=== PATIENT | female | born 1990 | race Caucasian/White ===

== ENCOUNTER 2018-07-28 06:08 | Inpatient (IN) ==
--- NOTE | 2018-07-28 06:44 | ED ---
HPI General Chief Complaint: Psychiatric Symptoms Stated Complaint: psych screen/DB [place] Time Seen by Provider: 07/28/18 06:37 Source: patient Mode of arrival: other ([place]) Limitations: no limitations History of Present Illness HPI Narrative: 27-year-old female presents the ED via law enforcement under [place] act for psychiatric evaluation. Per the [place] act paperwork the patient was found sleeping in a doorway, behaving erratically and had repetitive questioning. On presentation the patient appears to be under the influence of an unknown substance. She is very labile, vacillating between crying and laughter. She states that she "misses Bebeto." When asked if she knows the date she answered "today's date or THE date." She cries when we attempted to take her blood pressure stating that she is afraid of the blood pressure cuff. She then switched quickly to laughter. She then began to cry again when asked to remove her shoes, stating "anything but that." She states that she does not know when her last menstrual period was. She states that she does not know if she is sexually active. She is unable to provide any meaningful history. The officer that accompanies her states that she has a missing person, reported about 4 days ago. They have been in contact with her mother who would like to be notified when the patient is discharged. Related Data Allergies Allergy/AdvReac Type Severity Reaction Status Date / Time No Known Allergies Allergy Unverified 07/28/18 06:38 Review of Systems ROS: all other systems reviewed are negative PMFSH Medical History Medical History Patient denies medical problems (Acute) Surgical History Surgical History No history of previous surgery (Acute) Social History Social History Recent Travel in [facility] within the Last 8 Weeks: No Recent Out of Country Travel within the Last 8 Weeks: No Exam Narrative Exam Narrative: GENERAL: Well-nourished, well-developed white female no acute distress. SKIN: Focused skin assessment warm/dry. Diffuse sunburn HEAD: Atraumatic. Normocephalic. EYES: Pupils 6-7 mm, equal and round. No scleral icterus. No injection or drainage. ENT: No nasal bleeding or discharge. Mucous membranes pink and moist. NECK: Trachea midline. No JVD. CARDIOVASCULAR: Tachycardic. Regular rate and rhythm. No murmur appreciated. RESPIRATORY: No accessory muscle use. Clear to auscultation. Breath sounds equal bilaterally. GASTROINTESTINAL: Abdomen soft, non-tender, nondistended. Hepatic and splenic margins not palpable. MUSCULOSKELETAL: No obvious deformities. No clubbing. No cyanosis. No edema. NEUROLOGICAL: Awake and alert. No obvious cranial nerve deficits. Motor grossly within normal limits. Normal speech. PSYCHIATRIC: Labile, tangential. Course Initial Documented Vital Signs Pulse Rate 131 H 07/28/18 06:24 Respiratory Rate 20 07/28/18 06:24 Blood Pressure 127/76 07/28/18 06:24 Pulse Oximetry 98 07/28/18 06:24 Last Documented Vital Signs Pulse Rate 131 H 07/28/18 06:24 Respiratory Rate 20 07/28/18 06:24 Blood Pressure 127/76 07/28/18 06:24 Pulse Oximetry 98 07/28/18 06:24 Medical Decision Making MDM Narrative Medical decision making narrative: 27-year-old female presents the ED under [place] act for psychiatric evaluation. Per the lawyer criminal the patient is a missing persons. Her mother would like to be notified when she is to be discharged. She is under the influence of an unknown substance. She is unable to provide any meaningful history. She is tachycardic on presentation. Basic lab work pending. Anticipate medical clearance for psychiatric evaluation. Medical Screen Exam Complete: Yes Emergency Medical Condition: Yes Differential Diagnosis Differential Diagnosis: adjustment disorder versus anxiety versus bipolar versus depression versus mood disorder versus ODD versus psychosis versus PTSD versus schizophrenia versus schizoaffective disorder versus substance-induced mood disorder versus other Discharge Plan Discharge Disposition Patient Disposition: [facility] Patient Physicians Team ED Provider: Franklin Steiner ED Midlevel Provider: Cris Doherty Status ED Status: With Doctor
[2018-07-28 07:05] LABS: Baso % (Auto) 0.4 % (0.0-2.0); Eos % (Auto) 0.3 % (0.0-4.0); Hematocrit 44.7 % (35.0-46.0); Lymph # (Auto) 2.6 th/mm3 (1.0-4.8); Lymph % (Auto) 31.3 % (9.0-44.0); Mean Corpuscular HGB Conc 33.5 % (32.0-36.0); Mean Corpuscular Hemoglobin 31.1 pg (27.0-34.0); Mean Corpuscular Volume 92.8 fL (80.0-100.0); Mean Platelet Volume 9.7 fL (7.0-11.0); Mono # (Auto) 0.8 th/mm3 (0.0-0.9); Mono % (Auto) 10.2 % (0.0-8.0); Neut # (Auto) 4.7 th/mm3 (1.8-7.7); Neut % (Auto) 57.8 % (16.0-70.0); Platelet Count 314 th/mm3 (150-450); Red Blood Count 4.82 mil/mm3 (4.00-5.30); Red Cell Distribution Width 13.2 % (11.6-17.2); White Blood Count 8.2 th/mm3 (4.0-11.0)
[2018-07-28] MEDS ORDERED: Sod Chloride 0.9% Inj 1,000 ML IV.SIG SCH (07:15)
[2018-07-28 08:26] LABS: Alanine Aminotransferase 25 U/L (10-53); Anion Gap 17 meq/L (5-15); Aspartate Aminotransferase 24 U/L (15-37); Blood Urea Nitrogen 6 mg/dL (7-18); Calcium 8.9 mg/dL (8.5-10.1); Carbon Dioxide 19.8 meq/L (21.0-32.0); Chloride 105 meq/L (98-107); Glomerular Filtration Rate Greater Than 89 mL/min (>89); Glucose,Random 96 mg/dL (74-106); Potassium 4.3 meq/L (3.5-5.1); Sodium 142 meq/L (136-145)
[2018-07-28 08:27] LABS: Albumin 4.3 g/dL (3.4-5.0); Alkaline Phosphatase 79 U/L (45-117)
[2018-07-28 08:28] LABS: Alcohol 3 mg/dL (0-5)
[2018-07-28 09:39] LABS: Amphetamine Screen,Urine Neg (Neg); Barbiturate Screen,Urine Neg (Neg); Cannabinoid Screen,Urine Pos (Neg); Cocaine Screen,Urine Neg (Neg)
[2018-07-28 09:54] LABS: Opiate Screen,Urine Neg (Neg)
--- NOTE | 2018-07-28 16:41 | ED ---
HPI - Psych - General Source: patient Mode of arrival: other ([place]) Limitations: other (psychotic) - History of Present Illness MD complaint: other Onset (ago): day(s) Duration: constant History of same: Yes Relieving factors: none Exacerbating factors: none, other Context: not taking psychiatric medications Associated psychiatric symptoms: auditory hallucinations, visual hallucinations Associated symptoms: denies other symptoms Treatments prior to arrival: none If self harm: other (Unable to evaluate) - General Chief Complaint: Psychiatric Symptoms Stated Complaint: psych screen/[place] Time Seen by Provider: 07/28/18 16:15 - History of Present Illness HPI Narrative: History of Present Illness HPI Narrative: 27-year-old female presents the ED via law enforcement under [employer] for psychiatric evaluation. Per the [employer] act paperwork the patient was found sleeping in a doorway of a closed business, behaving erratically and had repetitive questioning. On presentation to the ED she is described as follows: " the patient appears to be under the influence of an unknown substance. She is very labile, vacillating between crying and laughter. She states that she "misses Bebeto." When asked if she knows the date she answered "today's date or THE date." She cries when we attempted to take her blood pressure stating that she is afraid of the blood pressure cuff. She then switched quickly to laughter. She then began to cry again when asked to remove her shoes, stating "anything but that." not know The officer that accompanies her states that she has a missing person, reported about 4 days ago. They have been in contact with her mother who would like to be notified when the patient is discharged. The patient was monitored in J pod and continued to present in a labile fashion. At approximately 1230 I was asked to evaluate the patient by 1 of the nurses. The patient was yelling at the nurse and threatening to harm the nurse. She was saying things such as "you do not know Bebeto. I will kill you. "Patient was administered ETO due to her level of agitation as well as her threats. Within 5 minutes of patient yelling she was laughing while no one was in the room with her. I attempted to obtain information from her but the patient was unable to provide any history. I contacted her mother PAULINE at [phone] to obtain clinical information. She informs me that the patient was hospitalized at [facility] on July 12 and discharged after 1 week hospitalization. After her discharge she went back to [place] where she lives and the mother had no contact with her until 2 days ago when she received a call from the patient telling her she had taken a plane from [place] and was somewhere in [facility]. She had no further contact with her so she filed a missing persons report. The mom tells me that she may have been given a medication at [facility] but she does not know the name of the medication. The mother tells me that the patient does have a history of substance abuse and the past but that to her knowledge she is not currently using any substances. Mom was adamant about not having the patient go to any other facility other than [facility] and actually threatened this blurb writer with contacting a second cutter on her behalf. (Miroslava Brooke) - Related Data Home Medications Medication Instructions Recorded Confirmed Unable to Obtain Home Meds 07/28/18 07/28/18 Allergies Allergy/AdvReac Type Severity Reaction Status Date / Time No Known Allergies Allergy Unverified 07/28/18 06:38 [facility] - History History Provided By: Patient, Law Enforcement - Medical History Medical History: Medical History (Last Updated 07/28/18 @ 06:34 by Bryant Coe) Patient denies medical problems - Surgical History Surgical History: Surgical History (Last Updated 07/28/18 @ 06:34 by Bryant Coe) No history of previous surgery - Social History I have reviewed the patient's Social History: Yes - Tobacco History Smoking Status: Unknown if ever smoked - Alcohol History How Often Do You Have a Drink Containing Alcohol: Unable to Obtain - Substance Use History Substance History: Unable to Obtain - Travel History Recent Travel in the [facility] Within the Last 8 Weeks: No Recent Travel Out of the Country Within the Last 8 Weeks: No - Immunization History Tetanus Immunization: Unsure Psychiatric History - Psychiatric History Psychiatric Treatment History: History of Psychiatric Treatment History of Inpatient Treatment: Yes Firearms in Home: No - Psychiatric History As per her mother she has received psychiatric treatment in the past. Was just released from [facility] approximately a month ago. ( Miroslava Brooke) Physical Exam - General Limitations: no limitations Mental Status Examination Appearance: Disheveled, Other Consciousness: Alert (Sunburned) Orientation: Person Motor Activity: Normal gait Speech: Slow Language: Adequate Fund of Knowledge: Adequate Attention and Concentration: Inadequate Memory: Impaired Mood: Angry, Irritable Affect: Labile Thought Process & Associations: Disorganized Thought Content: Delusional Hallucination Type: Auditory Delusion Type: Paranoid Suicidal Ideation: No Suicidal Plan: No Suicidal Intention: No Homicidal Ideation: No Homicidal Plan: No Homicidal Intention: No Insight: Poor Judgment: Poor Initial Documented Vital Signs Pulse Rate 131 H 07/28/18 06:24 Respiratory Rate 20 07/28/18 06:24 Blood Pressure 127/76 07/28/18 06:24 Pulse Oximetry 98 07/28/18 06:24 Last Documented Vital Signs Temperature 98.4 F 07/29/18 17:27 Pulse Rate 75 07/29/18 17:27 Respiratory Rate 17 07/29/18 17:27 Blood Pressure 100/63 07/29/18 17:27 Pulse Oximetry 97 07/29/18 17:27 MDM - Psych - Diagnosis (1) Schizophrenia, disorganized type Status: Acute - Lab Data Result diagrams: 07/28/18 06:30 07/28/18 06:30 - [facility] Narrative Medical decision making narrative: At the time of this evaluation and with all the information that we have obtained for her mother and the patient will be admitted to our inpatient psychiatric unit for further observation, for safety and for stabilization. ( Miroslava Brooke) - Lab Data POC Results POC Urine Results Negative Lab Results 07/28/18 07/28/18 07/28/18 Range/Units 06:30 06:30 08:55 WBC 8.2 (4.0-11.0) th/mm3 RBC 4.82 (4.00-5.30) mil/mm3 Hgb 15.0 (11.6-15.3) gm/dL Hct 44.7 (35.0-46.0) % MCV 92.8 (80.0-100.0) fL MCH 31.1 (27.0-34.0) pg MCHC 33.5 (32.0-36.0) % RDW 13.2 (11.6-17.2) % Plt Count 314 (150-450) th/mm3 MPV 9.7 (7.0-11.0) fL Neut % (Auto) 57.8 (16.0-70.0) % Lymph % (Auto) 31.3 (9.0-44.0) % Dade % (Auto) 10.2 H (0.0-8.0) % Eos % (Auto) 0.3 (0.0-4.0) % Baso % (Auto) 0.4 (0.0-2.0) % Neut # (Auto) 4.7 (1.8-7.7) th/mm3 Lymph # (Auto) 2.6 (1.0-4.8) th/mm3 Dade # (Auto) 0.8 (0.0-0.9) th/mm3 Eos # (Auto) 0.0 (0.0-0.4) th/mm3 Baso # (Auto) 0.0 (0.0-0.2) th/mm3 WBC Differential . Differential Comment Auto diff final Sodium 142 (136-145) meq/L Potassium 4.3 (3.5-5.1) meq/L Chloride 105 (98-107) meq/L Carbon Dioxide 19.8 L (21.0-32.0) meq/L Anion Gap 17 H (5-15) meq/L BUN 6 L (7-18) mg/dL Creatinine 0.71 (0.50-1.00) mg/dL Estimated GFR Greater than 89 (>89) mL/min Random Glucose 96 (74-106) mg/dL Calcium 8.9 (8.5-10.1) mg/dL Total Bilirubin 0.7 (0.2-1.0) mg/dL AST 24 (15-37) U/L ALT 25 (10-53) U/L Alkaline Phosphatase 79 (45-117) U/L Total Protein 8.0 (6.4-8.2) g/dL Albumin 4.3 (3.4-5.0) g/dL TSH 1.510 (0.358-3.740) uIU/mL Urine Opiates Screen Neg (Neg) Ur Barbiturates Screen Neg (Neg) Ur Amphetamines Screen Neg (Neg) U Benzodiazepines Scrn Neg (Neg) Urine Cocaine Screen Neg (Neg) U Cannabinoids Screen Pos H (Neg) Serum Alcohol 3 (0-5) mg/dL
[2018-07-28] MEDS ORDERED: Aluminum/Magnesium/Simethacone Susp 30 ML UDC PO PRN (16:58)
--- NOTE | 2018-07-29 09:52 | P.HPPSY ---
Provisional Diagnosis Admission Date: July 28, 2018 17:00 [place] I.: 1. Schizophrenia, disorganized type, acute exacerbation Rule out schizoaffective disorder, bipolar type Rule out contribution from drug-induced psychotic disorder 2. Cannabis abuse [place] II.: Deferred Competence Certification of Person's Competence To Provide Express and Informed Consent I have personally examined Tanisha Briseno, a person being served at [facility] on, July 29, 2018 0952. Express and informed consent means consent voluntarily given in writing, by a competent person, after sufficient explanation and disclosure of the subject matter involved to enable the person to make a knowing and willful decision without any element of force, fraud, deceit, duress, or other form of constraint or coercion. This person is 18 years of age or older, is not now known to be incompetent to consent to treatment with a guardian advocate, and does not have a health care surrogate or proxy currently making medical treatment decisions. I have found this person to be one of the following: [] Competent to provide express and informed consent, as defined above, for voluntary admission to this facility and is competent to provide express and informed consent for treatment. He/she has the consistent capacity to make well reasoned, willful, and knowing decisions concerning his or her medical or mental health treatment. The person fully and consistently understands the purpose of the admission for examination/placement and is fully capable of personally exercising all rights assured [place] [X] Incompetent to provide express and informed consent to voluntary admission, and this is incompetent to provide express and informed consent to treatment. The person must be transferred to involuntary status and a petition for a guardian advocate filed with the Circuit Court. [] Refusing to provide express and informed consent to voluntary admission but is competent to provide express and informed consent for treatment. The person must be discharged or transferred to involuntary status. Form shall be completed within 24 hours of a person's arrival at the receiving facility and filed in the clinical record of each person: 1. Admitted on a voluntary basis 2. Permitted to provide express and informed consent to his/her own treatment 3. Allowed to transfer from involuntary to voluntary status 4. Prior to permitting a person to consent to his or her own treatment after having been previously found incompetent to consent to treatment. History of Present Illness Capacity: Lacks capacity Chief Complaint: Crowe Act History of Present Illness: Ms. Briseno is a 27-year-old female with history of schizophrenia versus bipolar disorder who presents under a Crowe Act by Nina PEREZ alleging that patient was sleeping in the front door of closed business. She was noted to be unable to answer basic questions and repeated everything according to the Crowe act. Patient was evaluated by the psychiatric nurse practitioner in the ED who admitted the patient to the inpatient psychiatric unit for further management. Reviewing our electronic medical record, I see no previous psychiatric contact within our system. Patient seen and examined with nurse. Chart reviewed. Case discussed with nursing staff who reports that the patient has been smiling, laughing and somewhat disinhibited on the unit. I have discussed with staff ensuring that patient is closely monitored given behavioral disinhibition. On my examination today, patient presents initially with a silly, giddy affect. She provides tangential answers to questions, and her thought process is disorganized generally, and so it is difficult to obtain much in the way of meaningful history from the patient. She perseverates on a male by the name of Bebeto Victoria and also exhibits a mild lutheran preoccupation. She appears internally preoccupied but denies AVH. She denies suicidal or homicidal ideation. She is somewhat disheveled. Psychiatric interview is limited because of patient's degree of psychiatric impairment at present. I am unable to obtain much in the way of meaningful past psychiatric, family or social history from the patient for this reason. She does deny any substance use, although her urine toxicology is positive for cannabinoids. She also is able to say that she is presently homeless. Given the patient's degree of psychiatric impairment I obtained collateral information from the patient's mother Mindi Christian at the telephone number listed in wastewater project engineer note. Ms. Christian reports that patient had onset of her psychiatric illness about 8 years ago when parents were . She notes that the patient has a history of trauma. She does not know of any history of suicide attempts or violent behavior by the patient. There is no family history of mental illness. Ms. Christian notes patient has a history of substance use including MDMA and cocaine. She reports that the patient previously kept a firearm but this has been secured. She notes that patient was initially diagnosed with a bipolar illness but she has had ongoing issues with psychosis and schizophrenia has also been considered. Ms. Christian notes patient was recently hospitalized at [facility] and was on Risperdal there; she notes that the patient has had significant issues with medication nonadherence in the past. Ms. Christian is willing to serve as health care surrogate and provides consent for psychotropic medication treatment as outlined below. We discussed the patient's legal status and treatment plan. I spent approximately 18 minutes in telephone consultation with Ms. Christian. - Inpatient Certification I certify that the inpatient services were ordered in accordance with Medicare regulations governing the order. This includes certification that hospital inpatient services are reasonable and necessary and in the case of services not specified as inpatient-only under 42 CFR 419.22(n), that they are appropriately provided as inpatient services in accordance to with the 2-midnight benchmark under 43 CFR 412.3(e) I certify that inpatient psychiatric hospital services are medically necessary. Evaluation and treatment and/or diagnostic testing are expected to improve the patient's condition. The patient needs on a daily basis, active treatment furnished directly by or requiring the supervision of inpatient psychiatric facility personnel. Estimated Total Length of Stay (Days): 7 Plans for Post Hospital Care: Not yet determined Review of Systems unobtainable due to mental condition PMFSH - History History Provided By: Patient, Law Enforcement - Medical History Medical History: Medical History (Last Updated 07/28/18 @ 06:34 by Bryant Coe) Patient denies medical problems - Surgical History Surgical History: Surgical History (Last Updated 07/28/18 @ 06:34 by Bryant Coe) No history of previous surgery - Tobacco History Smoking Status: Unknown if ever smoked - Alcohol History How Often Do You Have a Drink Containing Alcohol: Unable to Obtain - Substance Use History Substance History: Unable to Obtain - Travel History Recent Travel in the [place] Within the Last 8 Weeks: No Recent Travel Out of the Country Within the Last 8 Weeks: No - Immunization History Tetanus Immunization: Unsure Quality Measures - Patient Strengths Patient's strengths (minimum of 2): In a monitored setting. Verbally fluent. Medications and Allergies Active Medications: Active Medications Al Hydrox/Mg Hydrox/Simethicone (Mag-Al Plus Susp Liq) 30 ml PO Q6H PRN PRN Reason: DYSPEPSIA Al Hydroxide/Mg Hydroxide (Milk Of Magnesia Liq) 30 ml PO Q12H PRN PRN Reason: Mild Constipation Sodium Chloride (Ns Inj) 1,000 mls @ 0 mls/hr IV.SIG BOLUS ADALI Last Infusion: 07/28/18 09:00 Dose: Infused Lorazepam (Ativan Inj) 1 mg IM Q6H PRN PRN Reason: MODERATE TO SEVERE ANXIETY Olanzapine (Zyprexa Inj) 10 mg IM Q12H PRN PRN Reason: SEVERE AGITATION Sennosides (Senokot) 17.2 mg PO Q12H PRN PRN Reason: Moderate Constipation Allergies Allergy/AdvReac Type Severity Reaction Status Date / Time No Known Allergies Allergy Unverified 07/28/18 06:38 Home Medications Medication Instructions Recorded Confirmed Type Unable to Obtain Home Meds 07/28/18 07/28/18 History Results - Labs CBC & Chem 7: 07/28/18 06:30 07/28/18 06:30 Labs: Laboratory Results - last 24 hr 07/28/18 08:55 Urine Opiates Screen Neg Ur Barbiturates Screen Neg Ur Amphetamines Screen Neg U Benzodiazepines Scrn Neg Urine Cocaine Screen Neg U Cannabinoids Screen Pos H Labs reviewed. ED point of care test negative. EKG reveals sinus rhythm with incomplete right bundle branch block. QTC is not prolonged. Exam Vital signs: Vital Signs 07/28/18 13:21 07/28/18 18:19 07/29/18 06:05 Temperature 97.9 F 98.1 F Pulse Rate 87 81 84 Respiratory Rate 18 18 16 Blood Pressure 114/66 107/66 115/87 Pulse Oximetry 100 97 Intake & Output 07/28/18 07/29/18 07/29/18 18:59 06:59 18:59 Intake Total 1000 / 1000 Balance 1000 / 1000 Weight 59.9 kg 96.4 kg Intake: IV 1000 / 1000 NS Inj 1,000 ML @ Wide Open IV. 1000 / 1000 SIG BOLUS ADALI Rx#:[id number] Other: Weight On Admission 59.9 kg Narrative: Physical examination was completed by the ED provider. On my examination today , the patient appears to be in no acute physical distress. No motor abnormalities noted. Labs and vital signs reviewed. Mental Status Examination Appearance: Disheveled Consciousness: Alert Orientation: Person, Place, Date/Time Motor Activity: Normal gait Speech: Rapid Language: Other (Rambling) Fund of Knowledge: Inadequate Attention and Concentration: Easily distracted Memory: Impaired (Psychosis interferes) Mood: Other (Somewhat elevated) Affect: Labile, Other (Silly) Thought Process & Associations: Disorganized Thought Content: Bizarre thinking, Hallucinations, Preoccupations Hallucination Type: Other (Appears internally stimulated) Delusion Type: Other (Difficult to assess due to thought disorder) Suicidal Ideation: No (Unreliable to contract for safety) Suicidal Plan: No Suicidal Intention: No Homicidal Ideation: No Homicidal Plan: No Homicidal Intention: No Insight: Poor Judgment: Poor Assessment and Plan - Assessment (1) Schizophrenia, disorganized type Code(s): F20.1 - Disorganized schizophrenia Status: Acute (2) Cannabis abuse Code(s): F12.10 - Cannabis abuse, uncomplicated Status: Acute - Plan Plan: 27-year-old female with psychiatric history as detailed above who presents under a Crowe act. On my examination today, the patient presents with prominent disorganization along with internal stimulation. She is disheveled and there is concern for a self-care deficit secondary to psychosis. Collateral from patient's mother suggests that history of schizophrenia or perhaps schizoaffective disorder. There may also be a component of drug- induced psychotic disorder given the patient's apparent cannabis use. Patient requires psychiatric hospitalization for safety, observation and stabilization. Admit inpatient. Involuntary status. I have completed first opinion. Consult for second opinion. Request healthcare surrogate and guardian advocate. For management of psychosis I will initiate Abilify 10 mg daily with plans to titrate to effect and as tolerated. To consider long-acting injectable Abilify Maintena, and I did discuss this option with healthcare surrogate Ms. Christian who is supportive. Atarax as needed for anxiety. Melatonin as needed for sleep. R/B/A for medications discussed with healthcare surrogate including the metabolic and motor side effects of antipsychotic therapy. I have ordered the nursing staff to obtain records from [facility]; these have been requested but we have received none at this point. Vitals every shift. Counselor to see. Further collateral information. Disposition planning. Estimated length of stay: 5-7 days. Justification for Continued Inpatient Stay: See above Discharge Planning: Pending psychiatric stabilization Request Healthcare Surrogate/Guardian Advocate?: Yes
--- NOTE | 2018-07-29 12:31 | ECG ---
Date Performed: 07/29/2018 Time Performed: 11:11:25 PTAGE: 27 years EKG: Sinus rhythm INCOMPLETE RIGHT BUNDLE BRANCH BLOCK BORDERLINE ECG NO PREVIOUS TRACING DOCTOR: Jass Reilly Interpretating Date/Time 07/29/2018 12:29:59
[2018-07-29] MEDS ORDERED: Acetaminophen 325 MG Tablet PO PRN (15:38)
[2018-07-30] MEDS: ARIPiprazole 10 MG Tablet PO SCH ×2 (08:27→17:33)
--- NOTE | 2018-07-30 09:26 | P.TTN ---
- Patient Problems Problems: 1. Discharge planning 2. Medication compliance 3. Knowledge deficit 4. Lack of coping skills - Progress Toward Goals Provider Present: Dr. Haja Natarajan (Patient is disorganized, psychotic, history of schizophrenia, patient is a supportive mom, Dr. Natarajan is titrating medication Abilify.) Psychiatric Counselors Present: Jude Carrasco Jr., [facility] (Patient is not engaged in treatment, patient will discharge home to his mother's residence when stable.) Group Spec/RT/OT/RYAN Present: CONNOR Linder (Patient does not attend groups.) - Documentation Teaching Recipient: Patient
--- NOTE | 2018-07-30 09:37 | P.PNPSY ---
Subjective Chief Complaint: Crowe Act Remarks: Patient seen and examined with nurse. Chart reviewed. I note that records have been requested from [facility], but we have not yet received anything in return. Case discussed with nursing staff who reports patient refused laboratories this morning. Case discussed in treatment team. On my examination today, the patient presents as oppositional and oddly related. Thought process remains fairly disorganized. She remains perseverative on Bebeto Julien. She is selectively mute at times, and at other times responds only with peals of laughter, as she does when I inquire about SI/ HI and about substance use. No reported side effects from medications. No physical complaints. The patient refuses physical examination for motor side effects of antipsychotic saying in a somewhat threatening fashion "no, you better not." Vital Signs Temp Pulse Resp BP Pulse Ox 07/30/18 06:29 98.1 F 87 109/61 99 07/29/18 17:27 98.4 F 75 17 100/63 97 Labs reviewed. No new labs. Nurse to call laboratory to ensure that they are running the extended urine toxicology screen based on the urine sample already in the lab. Review of Systems unobtainable due to mental condition Mental Status Examination Appearance: Disheveled Consciousness: Alert (Sunburned) Orientation: Person Motor Activity: Other (No motor abnormalities noted but refuses physical exam) Speech: Unremarkable Language: Other (Rambling) Fund of Knowledge: Adequate Attention and Concentration: Inadequate Memory: Impaired Mood: Oppositional, Other (Somewhat elevated) Affect: Labile, Other (Silly) Thought Process & Associations: Disorganized Thought Content: Bizarre thinking, Hallucinations Hallucination Type: Other (Appears internally stimulated) Delusion Type: Other (Difficult to assess due to thought disorder) Insight: Poor Judgment: Poor Mental Status Exam Remarks: Does not answer when asked about suicidal or homicidal ideation. 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 Titrate Abilify to 15 mg daily to target psychiatric symptoms. Please consider further titration of this agent through the weekend. To consider long-acting injectable Abilify Maintena. Continue other medications and care as ordered. Justification for Continued Inpatient Stay: Medication changes. Impairment in reality construction. High risk for decompensation in less restrictive setting. Discharge Planning: Pending psychiatric stabilization. Request Healthcare Surrogate/Guardian Advocate?: Yes
[2018-07-30] MEDS ORDERED: ARIPiprazole 5 MG Tablet PO ONE (10:00)
[2018-07-30 11:24] LABS: Amphetamine Urine With Conf Neg (Neg); Benzodiazepine Urine With Conf Neg (Neg)
--- NOTE | 2018-07-30 13:36 | P.CONPSY ---
Provisional Diagnosis Admission Date: July 28, 2018 17:00 [place] I.: 1. Schizophrenia, disorganized type, acute exacerbation Rule out schizoaffective disorder, bipolar type Rule out contribution from drug-induced psychotic disorder 2. Cannabis abuse [place] II.: Deferred History of Present Illness Service: Psychiatry Consult date: 07/30/18 Requesting Physician: George Natarajan Reason for Consult: Second opinion petition supporting Crowe act Primary Care Provider: UNKNOWN History of Present Illness: Patient is a 27-year-old white female admitted to Dr. Natarajan service under the Crowe act. Dr. Natarajan H&P reviewed and agreed with, Dr. Natarajan has signed first opinion petition supporting Crowe act. I agree. Patient meets criteria under the Crowe act for further involuntary psychiatric hospitalization thus I will cosign second opinion petition supporting Crowe act. Patient seen by me in day room with nurse Nathaly patient sitting in chair with a severely childlike grin on her face making fair eye contact with me though showing no verbal response to my questions just kind of giggling and then turning away from me thus at this time I feel patient does meet criteria for involuntary psychiatric hospitalization PMFSH - History History Provided By: Patient, Law Enforcement - Medical History Medical History: Medical History (Last Updated 07/28/18 @ 06:34 by Bryant Coe) Patient denies medical problems - Surgical History Surgical History: Surgical History (Last Updated 07/28/18 @ 06:34 by Bryant Coe) No history of previous surgery - Tobacco History Smoking Status: Unknown if ever smoked - Alcohol History How Often Do You Have a Drink Containing Alcohol: Unable to Obtain - Substance Use History Substance History: Unable to Obtain - Travel History Recent Travel in the [place] Within the Last 8 Weeks: No Recent Travel Out of the Country Within the Last 8 Weeks: No - Immunization History Tetanus Immunization: Unsure Medications and Allergies Active Medications: Active Medications Acetaminophen (Tylenol) 650 mg PO Q4H PRN PRN Reason: PAIN 1-10 AND/OR FEVER >101F Al Hydrox/Mg Hydrox/Simethicone (Mag-Al Plus Susp Liq) 30 ml PO Q6H PRN PRN Reason: DYSPEPSIA Al Hydroxide/Mg Hydroxide (Milk Of Magnesia Liq) 30 ml PO Q12H PRN PRN Reason: Mild Constipation Aripiprazole (Abilify) 15 mg PO DAILY ADALI Hydroxyzine HCl (Atarax) 50 mg PO Q6H PRN PRN Reason: ANXIETY Sodium Chloride (Ns Inj) 1,000 mls @ 0 mls/hr IV.SIG BOLUS ADALI Last Infusion: 07/28/18 09:00 Dose: Infused Melatonin (Melatonin) 5 mg PO HS PRN PRN Reason: INSOMNIA Allergies Allergy/AdvReac Type Severity Reaction Status Date / Time No Known Allergies Allergy Unverified 07/28/18 06:38 Home Medications Medication Instructions Recorded Confirmed Type Unable to Obtain Home Meds 07/28/18 07/28/18 History Exam Vital signs: Vital Signs 07/29/18 17:27 07/30/18 06:29 Temperature 98.4 F 98.1 F Pulse Rate 75 87 Respiratory Rate 17 Blood Pressure 100/63 109/61 Pulse Oximetry 97 99 Mental Status Examination Appearance: Disheveled Consciousness: Alert (Sunburned) Orientation: Person Motor Activity: Other (No motor abnormalities noted but refuses physical exam) Speech: Unremarkable Language: Other (Rambling) Fund of Knowledge: Adequate Attention and Concentration: Inadequate Memory: Impaired Mood: Oppositional, Other (Somewhat elevated) Affect: Labile, Other (Silly) Thought Process & Associations: Disorganized Thought Content: Bizarre thinking, Hallucinations Hallucination Type: Other (Appears internally stimulated) Delusion Type: Other (Difficult to assess due to thought disorder) Suicidal Ideation: No Suicidal Plan: No Suicidal Intention: No Homicidal Ideation: No Homicidal Plan: No Homicidal Intention: No Insight: Poor Judgment: Poor Assessment and Plan - Assessment (1) Schizophrenia, disorganized type Code(s): F20.1 - Disorganized schizophrenia Status: Acute - Plan Plan: Patient meets criteria for involuntary psychiatric hospitalization thus I will cosign second opinion petition supporting Crowe act Justification for Continued Inpatient Stay: At this time patient would decompensate a place to a lower level of care Discharge Planning: To be determined Request Healthcare Surrogate/Guardian Advocate?: Yes
[2018-07-31] MEDS: ARIPiprazole 5 MG Tablet PO SCH ×2 (08:07→08:55)
[2018-07-31] MEDS ORDERED: Haloperidol Inj 5 MG/ML Ampul IM PRN (17:07)
[2018-07-31] MEDS ORDERED: Haloperidol Inj 5 MG/ML Ampul IM ONE (17:39)
[2018-07-31] MEDS ORDERED: Benztropine Inj 2 MG/2 ML Ampul IM ONE (18:20)
--- NOTE | 2018-07-31 18:30 | P.PNPSY ---
Subjective Chief Complaint: Crowe Act Remarks: Reviewed electronic medical records and discussed case with staff. Follow-up was conducted in patient's room with SHON Cullen present. Patient found lying face down on the floor with her face and that she. She initially refuses to speak this provider but eventually states "I am Tenri[employer], I do not speak to women". When asked what that has to do with speaking to women, she becomes irritable snapping at this provider "you obviously do not understand Congregation and you are obviously breaking my spiritism rights". I explained to her that she would be kept in the short robles due to flashing her breasts at the male patients on the unit, and that I had spoken with her mother and she would be given injectable medications if she continued to refuse the oral. She later came out of her room , and aggressively approached this provider, yelling "I do not have a mother, I am homeless, you are violating my rights by talking to anybody. Promise me that you won't give me any injections". She was once again placed back on the short robles and a 1 mg IM dose of Ativan was added to the IM Haldol. Mental Status Examination Appearance: Disheveled Consciousness: Alert (Sunburned) Orientation: Person Motor Activity: Other (No motor abnormalities noted but refuses physical exam) Speech: Unremarkable Language: Other (Rambling) Fund of Knowledge: Adequate Attention and Concentration: Inadequate Memory: Impaired Mood: Oppositional, Other (Somewhat elevated) Affect: Labile, Other (Silly) Thought Process & Associations: Disorganized Thought Content: Bizarre thinking, Hallucinations Hallucination Type: Other (Appears internally stimulated) Delusion Type: Other (Difficult to assess due to thought disorder) Suicidal Ideation: No Suicidal Plan: No Suicidal Intention: No Homicidal Ideation: No Homicidal Plan: No Homicidal Intention: No Insight: Poor Judgment: Poor Assessment and Plan - Assessment (1) Schizophrenia, disorganized type Code(s): F20.1 - Disorganized schizophrenia Status: Acute - Plan Plan: Patient will be reevaluated Thursday by the attending psychiatrist. Continue with current treatment plan. Justification for Continued Inpatient Stay: Moving this patient to a less restrictive environment would likely result in decompensation. Request Healthcare Surrogate/Guardian Advocate?: Yes
[2018-07-31] MEDS: Haloperidol 5 MG Tablet PO SCH ×2 (21:24→21:35)
[2018-08-01] MEDS: Haloperidol 5 MG Tablet PO SCH ×2 (08:33→23:04)
--- NOTE | 2018-08-01 16:14 | P.PNPSY ---
Subjective Chief Complaint: [facility] Remarks: Reviewed electronic medical records and discussed case with staff. Follow-up was conducted in the dayroom. Patient is very disorganized, tangential and delusionals. She states that she is a refugee and has no family. When you ask her a direct question she states, " I am not here" or " I am Holiness." She cannot focus and is easily distracted. She is sexually preoccupied and following male patients, focusing on one male patient that is going to be transferred to the [facility]. Nursing staff are aware of the situation and have made efforts to redirect these two patients. They have been on the unit , one is in the short hallway. Her mother has called several times from [place] and that patient refuses to speak with her mother. Review of Systems All other systems reviewed negative except as stated in HPI Mental Status Examination Appearance: Appropriate Consciousness: Alert (Sunburned) Orientation: Person Motor Activity: Other (No motor abnormalities noted but refuses physical exam) Speech: Unremarkable Language: Other (Rambling) Fund of Knowledge: Adequate Attention and Concentration: Inadequate Memory: Impaired Mood: Oppositional, Other (Somewhat elevated) Affect: Labile, Other (Silly) Thought Process & Associations: Disorganized Thought Content: Bizarre thinking, Hallucinations Hallucination Type: Other (Appears internally stimulated) Delusion Type: Other (Difficult to assess due to thought disorder) Suicidal Ideation: No Suicidal Plan: No Suicidal Intention: No Homicidal Ideation: No Homicidal Plan: No Homicidal Intention: No Insight: Poor Judgment: Poor Assessment and Plan - Assessment (1) Schizophrenia, disorganized type Code(s): F20.1 - Disorganized schizophrenia Status: Acute - Plan Plan: Patient will be reevaluated Thursday by the attending psychiatrist. Continue with current treatment plan. Justification for Continued Inpatient Stay: Moving patient to a less restrictive environment may result in his decompensation. Request Healthcare Surrogate/Guardian Advocate?: Yes
[2018-08-02] MEDS: Haloperidol 5 MG Tablet PO SCH ×2 (08:43→20:23)
[2018-08-02] MEDS ORDERED: Benztropine Inj 2 MG/2 ML Ampul IM PRN (10:43)
--- NOTE | 2018-08-02 10:50 | P.PNPSY ---
Subjective Chief Complaint: [facility] [facility] Remarks: Patient seen and examined with nurse. Chart reviewed. Records have been requested from [facility] but have not been received. Case discussed with nursing staff. Haldol IM was not administered over the weekend despite being ordered should the patient refuse oral Haldol. I have discussed the matter with nursing staff, and IM Haldol was administered this morning. Case discussed with counselor. On my examination today, the patient remains floridly psychotic. She is internally stimulated. She requires frequent redirection to participate in interview. She says of this clinician "he's Rastafarian [this is a presumption on patient's part, I have not shared my faith views with the patient]. I can't look in his eyes. He's celebrating Lisa Holland." Claims that she has dystonic reaction from Haldol. She says that she can take other antipsychotics like Seroquel and Zyprexa. Resistance to treatment with agent with available DAVEY is suspected, but I will add scheduled Cogentin out of an abundance of caution and make sure PO/IM Cogentin p.r.n. is available. No physical complaints. Vital Signs Temp Pulse Resp BP Pulse Ox 08/02/18 06:00 98.2 F 71 17 96/53 L 98 08/01/18 18:37 97.6 F 84 118/56 L 99 Intake and Output 08/01/18 08/02/18 08/02/18 22:59 06:59 14:59 Other: Weight 63.6 kg Labs reviewed. No new labs. Extended urine toxicology screen pending. Review of Systems All other systems reviewed negative except as stated in HPI (Limitation: Psychosis) Mental Status Examination Appearance: Appropriate Consciousness: Alert Orientation: Person Motor Activity: Other (No hand tremor, no dystonia, no dyskinesia, no other motor abnormalities noted.) Speech: Unremarkable Language: Other (Remains rambling) Fund of Knowledge: Adequate Attention and Concentration: Inadequate Memory: Impaired Mood: Oppositional, Other (Mildly elevated) Affect: Labile, Other (Remains silly) Thought Process & Associations: Tangential Thought Content: Bizarre thinking, Hallucinations, Thought blocking Hallucination Type: Other (Remains internally stimulated) Delusion Type: Bizarre, Other (Anglican) Suicidal Ideation: No Homicidal Ideation: No Insight: Poor Judgment: Poor Assessment and Plan - Assessment (1) Schizophrenia, disorganized type Code(s): F20.1 - Disorganized schizophrenia Status: Acute - Plan Plan: We will begin routine administration of Haldol by mouth with IM backup today. I will add scheduled Cogentin and make sure as needed Cogentin is available as noted above. Plan for titration of Haldol to effect and initiation of long- acting injectable if efficacious and well tolerated. Continue to monitor on the high acuity unit. Continue other medications and care as ordered. Justification for Continued Inpatient Stay: Impairment in reality construction. High risk for decompensation in less restrictive environment. Discharge Planning: Pending psychiatric stabilization. Request Healthcare Surrogate/Guardian Advocate?: Yes
[2018-08-02] MEDS: Melatonin 5 MG Tablet PO PRN (20:24)
[2018-08-03] MEDS: Haloperidol 5 MG Tablet PO SCH ×2 (08:19→20:44)
--- NOTE | 2018-08-03 10:52 | P.PNPSY ---
Subjective Chief Complaint: [place] [facility] Remarks: Patient seen and examined with nurse. Chart reviewed. Case discussed with nursing staff. Patient is now accepting oral antipsychotic therapy. She reportedly remains preoccupied with Bebeto Victoria. Case discussed in treatment team where patient's yazidi preoccupation is discussed. This yazidi preoccupation continues on my evaluation today. The patient remains somewhat internally stimulated and oddly related. Formal thought disorder persists but is perhaps less prominent today. No side effects from medications. No physical complaints. Spoke with patient's mother/healthcare surrogate. We discussed patient's progress on the unit. Patient's mother feels that the patient is improved somewhat, and we discuss eventual transition to Haldol Decanoate. Mother does note that yazidi preoccupation is a feature of patient's illness. We discussed the dosing regimen and the need for oral supplementation with Haldol by mouth for this agent. Mother provides consent for Haldol Decanoate. We discuss [place] on and discuss estimated length of stay. I spent approximately 12 minutes in telephone consultation with patient's mother. Vital Signs Temp Pulse Resp BP Pulse Ox 08/03/18 06:21 98.3 F 97 H 18 99/49 L 98 Labs reviewed. No new labs. Review of Systems All other systems reviewed negative except as stated in HPI (Limitation: Psychosis) Mental Status Examination Appearance: Appropriate Consciousness: Alert Orientation: Person Motor Activity: Other (Again no hand tremor, no dyskinesia, no dystonia, no cogwheeling, no hypomimia, no other motor abnormalities noted.) Speech: Unremarkable Language: Other (Remains rambling) Fund of Knowledge: Adequate Attention and Concentration: Inadequate Memory: Impaired Mood: Other (Calm) Affect: Blunt Thought Process & Associations: Tangential (Perhaps somewhat more organized today) Thought Content: Bizarre thinking, Hallucinations, Thought blocking Hallucination Type: Other (Remain somewhat internally stimulated) Delusion Type: Bizarre, Other (Taoism) Suicidal Ideation: No Homicidal Ideation: No Insight: Poor Judgment: Poor Assessment and Plan - Assessment (1) Schizophrenia, disorganized type Code(s): F20.1 - Disorganized schizophrenia Status: Acute - Plan Plan: Titrate Haldol to 7.5 mg twice daily to target residual psychiatric symptoms. To consider long-acting injectable Haldol Decanoate. Continue to monitor on the inpatient unit. Continue other medications and care as ordered. Justification for Continued Inpatient Stay: Medication changes. Impairment in reality construction. High risk for decompensation in less restrictive environment. Discharge Planning: Pending psychiatric stabilization. Request Healthcare Surrogate/Guardian Advocate?: Yes
[2018-08-03] MEDS ORDERED: Haloperidol Inj 5 MG/ML Ampul IM PRN (21:00)
[2018-08-04] MEDS: Haloperidol 5 MG Tablet PO SCH ×2 (08:37→20:18)
--- NOTE | 2018-08-04 11:01 | P.PNPSY ---
Subjective Chief Complaint: [place] Remarks: Patient seen and examined with nurse. Chart reviewed. Case discussed with nursing staff who reports ongoing cheondoism preoccupation. On my examination today, the patient reports that she feels "happy" although her affect is quite flat. Her thought process is tangential. Her eye contact is poor. She denies any SI or HI. She denies any AVH but remains internally preoccupied. Denies any issues with mood. No reported side effects from medications. No physical complaints. We discuss treatment plan including plan for eventual transition to long-acting injectable antipsychotic, and the patient reports "that is fine with me." Vital Signs Temp Pulse Resp BP Pulse Ox 08/04/18 05:39 98.4 F 60 16 90/51 L 99 08/03/18 19:06 98.4 F 86 16 98/55 L 98 Laboratory Results - last 24 hr 07/28/18 08:55 Ur Buprenorphine Negative Ur Heroin Screen Negative Urine Oxycodone Negative Ur Methadone Negative U Hydromorphone Confirm Negative Urine Fentanyl Negative Urine Gabapentin Negative Ur Phencyclidine (PCP) Negative Urine MDPV Negative Ur MDMA & Metabolites Negative U Cannabinoids Confirm Positive A Ur Synth THC (K2) Negative Labs reviewed. Review of Systems All other systems reviewed negative except as stated in HPI (Limitation: Psychosis) Mental Status Examination Appearance: Appropriate Consciousness: Alert Orientation: Person Motor Activity: Other (No motor abnormalities noted) Speech: Unremarkable Language: Other (Remains rambling) Fund of Knowledge: Adequate Attention and Concentration: Inadequate Memory: Impaired Mood: Other ("Happy") Affect: Flat Thought Process & Associations: Tangential Thought Content: Bizarre thinking, Hallucinations, Thought blocking Hallucination Type: Other (Internally preoccupied) Delusion Type: Bizarre, Other (Mu-Ism) Suicidal Ideation: No Homicidal Ideation: No Insight: Poor Judgment: Poor Assessment and Plan - Assessment (1) Schizophrenia, disorganized type Code(s): F20.1 - Disorganized schizophrenia Status: Acute - Plan Plan: Partial response to Haldol with evidently good tolerability. Continue current dose of Haldol for now, but to consider further titration of this agent. Continue to monitor on the inpatient unit. Continue other medications and care as ordered. Justification for Continued Inpatient Stay: Impairment in reality construction. Medication changes planned (i.e. addition of long-acting injectable antipsychotic). High risk for decompensation in less restrictive environment. Discharge Planning: Pending psychiatric stabilization. [place] [address] tomorrow. Request Healthcare Surrogate/Guardian Advocate?: Yes
[2018-08-05] MEDS: Melatonin 5 MG Tablet PO PRN (01:09)
[2018-08-05] MEDS: Haloperidol 5 MG Tablet PO SCH ×2 (08:13→21:35)
--- NOTE | 2018-08-05 09:46 | P.PNPSY ---
Subjective Chief Complaint: [employer] Remarks: Patient seen and case discussed with staff. Chart reviewed. For me today, patient presents with ongoing episcopalian preoccupation. She exhibits internal preoccupation. She believes that the hospital is a "concentration camp." She says that she does not want her mother to visit because "I do not want you to get trapped here." Ongoing preoccupation with Bebeto Victoria, with considerable mobilization of affect on this point. No evident side effects from medications. No physical complaints. Vital Signs Temp Pulse Resp BP Pulse Ox 08/05/18 06:21 98.1 F 70 16 90/55 L 95 08/04/18 16:58 97.9 F 82 18 120/54 L 100 Intake and Output 08/04/18 08/05/18 08/05/18 22:59 06:59 14:59 Other: Weight 65.4 kg Laboratory Results - last 24 hr 07/28/18 08:55 Ur Buprenorphine Negative Ur Heroin Screen Negative Urine Oxycodone Negative Ur Methadone Negative U Hydromorphone Confirm Negative Urine Fentanyl Negative Urine Gabapentin Negative Ur Phencyclidine (PCP) Negative Urine MDPV Negative Ur MDMA & Metabolites Negative U Cannabinoids Confirm Positive A Ur Synth THC (K2) Negative Labs reviewed. Review of Systems other (Limited ROS) Mental Status Examination Appearance: Appropriate Consciousness: Alert Orientation: Person Motor Activity: Other (No abnormal motor movements noted.) Speech: Unremarkable Language: Other (Rambling) Fund of Knowledge: Adequate Attention and Concentration: Inadequate Memory: Impaired Mood: Irritable (mild) Affect: Flat Thought Process & Associations: Tangential Thought Content: Bizarre thinking, Hallucinations, Delusional Hallucination Type: Other (Remains int stim) Delusion Type: Bizarre, Other (Spiritism) Suicidal Ideation: No Homicidal Ideation: No Insight: Poor Judgment: Poor Assessment and Plan - Assessment (1) Schizophrenia, disorganized type Code(s): F20.1 - Disorganized schizophrenia Status: Acute - Plan Plan: Titrate Haldol to 10mg BID for management of psychosis. Continue to monitor on inpatient unit. Continue other medications and care as ordered. Patient's case was presented to the [employer] court and was placed in continuance for 2 weeks with mother Ms. Christian to serve as HCS. Justification for Continued Inpatient Stay: Medication changes. Impairment in reality construction. High risk for decompensation in less restrictive environment. Discharge Planning: Pending psychiatric stabilization. Request Healthcare Surrogate/Guardian Advocate?: Yes
[2018-08-05] MEDS ORDERED: Haloperidol 5 MG Tablet PO ONE (09:47)
[2018-08-05] MEDS ORDERED: Haloperidol Inj 5 MG/ML Ampul IM PRN (09:48)
[2018-08-05 10:08] LABS: Anion Gap 5 meq/L (5-15); Blood Urea Nitrogen 10 mg/dL (7-18); Calcium 8.6 mg/dL (8.5-10.1); Carbon Dioxide 28.9 meq/L (21.0-32.0); Chloride 106 meq/L (98-107); Cholesterol 129 mg/dL (120-200); Glomerular Filtration Rate Greater Than 89 mL/min (>89); Glucose,Random 71 mg/dL (74-106); Potassium 4.3 meq/L (3.5-5.1); Sodium 140 meq/L (136-145)
[2018-08-05 10:27] LABS: Chol/HDL Ratio 2.53 Ratio; HDL Cholesterol 50.9 mg/dL (40.0-60.0); LDL Cholesterol,Calculated 57 mg/dL (0-99); Triglycerides 106 mg/dL (42-150)
[2018-08-05 16:30] LABS: Hemoglobin A1c 4.7 % (4.3-6.0)
[2018-08-06] MEDS: Haloperidol 5 MG Tablet PO SCH ×2 (08:01→22:23)
--- NOTE | 2018-08-06 11:27 | P.PNPSY ---
Subjective Chief Complaint: [place] [facility] Remarks: Patient seen and examined with nurse. Chart reviewed. No records from [facility]. Case discussed with nursing staff who reports that patient has been instigating peers at times and dictating to staff. Case discussed in treatment team. On my examination today, patient remains religiously preoccupied, particularly on the Evangelical héctor. She says that she is trying to convert her mother (who has shared she is a Yazidism) to the Nondenominational. She remains somewhat oddly related and exhibits bizarre ideation at times. She says "I'm having a hard time translating my thoughts to a different language." Denies SI/ HI. Denies AVH. Complains of some mild restlessness from medications, although patient does not appear objectively restless. No physical complaints. Nurse reports that patient's mother/HCS was requesting a call. I did endeavor to call mother and left a generic VM requesting a call back. Vital Signs Temp Pulse Resp BP Pulse Ox 08/06/18 05:50 98.1 F 17 92/48 L 08/05/18 17:06 97.4 F L 74 18 106/51 L 99 Laboratory Results - last 24 hr 08/05/18 09:08 Hemoglobin A1c 4.7 Labs reviewed. Review of Systems All other systems reviewed negative except as stated in HPI Mental Status Examination Appearance: Appropriate Consciousness: Alert Orientation: Person, Place Motor Activity: Other (No hand tremor, no dystonia, no dyskinesia noted. No other motor abnormalities noted. 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 I will titrate Haldol to 12.5mg BID to target residual symptoms. Monitor for akathisia and other side effects. Although patient complains of restlessness, there is no objective evidence of this and in any event her lower BPs makes initiation of beta jose f untenable and her history of substance use issues makes benzo undesirable. If patient does develop significant akathisia, we may simply need to consider a different agent. Continue to monitor on the inpatient unit; we will try to transition the patient to the lower acuity unit given improvement so far. Continue other medications and care as ordered. Justification for Continued Inpatient Stay: Medication changes. Impairment in reality construction. Risk for decompensation in less restrictive environment. Discharge Planning: Pending psychiatric stabilization. Request Healthcare Surrogate/Guardian Advocate?: Yes
[2018-08-06] MEDS: Melatonin 5 MG Tablet PO PRN (22:21)
[2018-08-07] MEDS: Haloperidol 5 MG Tablet PO SCH ×2 (08:41→20:37)
--- NOTE | 2018-08-07 16:06 | P.PNPSY ---
Subjective Chief Complaint: [place] Remarks: Pt seen and discussed with staff. Chart reviewed. She remains delusional and is religiously preoccupied. She has been fixated on "Bebeto Victoria" and has been asking RNs if they are his mother. She remains bizarre and intrusive and is easily frustrated. She has been compliant with medications and care. No SI/HI Mental Status Examination Appearance: Appropriate Consciousness: Alert Orientation: Person, Place Motor Activity: Other (No hand tremor, no dystonia, no dyskinesia noted. No other motor abnormalities noted. 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
[2018-08-07] MEDS: Melatonin 5 MG Tablet PO PRN (20:46)
[2018-08-08] MEDS: Haloperidol 5 MG Tablet PO SCH ×2 (08:47→20:01)
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
[2018-08-08] MEDS: Melatonin 5 MG Tablet PO PRN (20:01)
[2018-08-09 06:40] VITALS: BP 98/52; PULSE 80; RESP 17; TEMP 98.7; O2SAT 96
--- NOTE | 2018-08-09 08:46 | P.DSPSY ---
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 Briseno is a 27-year-old female with history of schizophrenia versus bipolar disorder who presents under a Crowe Act by Nina PEREZ alleging that patient was sleeping in the front door of closed business. She was noted to be unable to answer basic questions and repeated everything according to the Crowe act. Patient was evaluated by the psychiatric nurse practitioner in the ED who admitted the patient to the inpatient psychiatric unit for further management. Reviewing our electronic medical record, I see no previous psychiatric contact within our system. Patient seen and examined with nurse. Chart reviewed. Case discussed with nursing staff who reports that the patient has been smiling, laughing and somewhat disinhibited on the unit. I have discussed with staff ensuring that patient is closely monitored given behavioral disinhibition. On my examination today, patient presents initially with a silly, giddy affect. She provides tangential answers to questions, and her thought process is disorganized generally, and so it is difficult to obtain much in the way of meaningful history from the patient. She perseverates on a male by the name of Bebeto Victoria and also exhibits a mild buddhist preoccupation. She appears internally preoccupied but denies AVH. She denies suicidal or homicidal ideation. She is somewhat disheveled. Psychiatric interview is limited because of patient's degree of psychiatric impairment at present. I am unable to obtain much in the way of meaningful past psychiatric, family or social history from the patient for this reason. She does deny any substance use, although her urine toxicology is positive for cannabinoids. She also is able to say that she is presently homeless. Given the patient's degree of psychiatric impairment I obtained collateral information from the patient's mother Mindi Christian at the telephone number listed in dental floss packer note. Ms. Christian reports that patient had onset of her psychiatric illness about 8 years ago when parents were . She notes that the patient has a history of trauma. She does not know of any history of suicide attempts or violent behavior by the patient. There is no family history of mental illness. Ms. Christian notes patient has a history of substance use including MDMA and cocaine. She reports that the patient previously kept a firearm but this has been secured. She notes that patient was initially diagnosed with a bipolar illness but she has had ongoing issues with psychosis and schizophrenia has also been considered. Ms. Christian notes patient was recently hospitalized at [facility] and was on Risperdal there; she notes that the patient has had significant issues with medication nonadherence in the past. Ms. Christian is willing to serve as health care surrogate and provides consent for psychotropic medication treatment as outlined below. We discussed the patient's legal status and treatment plan. I spent approximately 18 minutes in telephone consultation with Ms. Christian. Tobacco Use In Past 30 Days: No How Often Do You Have a Drink Containing Alcohol: Unable to Obtain Hospital Course: Patient was admitted to a locked, inpatient psychiatric unit. Appropriate precautions were in place throughout patient's hospital stay. Patient was seen and examined on the unit by psychiatry and also visited by counselor. Psychotropic medications were adjusted. Patient tolerated medication changes well without side effects. There was no evidence of any suicidality or homicidality on the inpatient unit. There was no evidence of significant self- care deficit on the day of discharge. Collateral information was obtained from the patient's mother. On the day of discharge: Patient seen and examined with nurse. Chart reviewed. Case discussed with nursing staff who notes that patient has an ongoing sexual preoccupation but otherwise has been no behavioral problem. She has not reportedly sexually acted out herself but is perseverative on others behaving in such a fashion. Case discussed with counselor. I have additionally spoken with patient's mother, Ms. Christian, on the day of discharge. Ms. Christian has no safety concerns about the patient being discharged home today and is supportive of discharge home today. She notes that she and patient have been discussing psychotherapists with whom patient may follow up. I have emphasized the importance of adherence to psychotropic medications and have reviewed discharge medication plan with mother. I have also recommended that Ms. Christian secure the home environment of potential means of harm to self/others including but not limited to guns, knives and medications out of an abundance of caution. I have further instructed Ms. Christian to return the patient to the emergency room for further evaluation should patient's behavior deteriorate. On my examination today, the patient is requesting discharge today from the inpatient psychiatric unit. She denies any suicidal or homicidal ideation, intent or plan. I can elicit no depressive or hypomanic/manic symptoms. She does remain somewhat oddly related. She denies any audiovisual hallucinations and denies any command auditory hallucinations to hurt self/others. She does remain somewhat sexually preoccupied but admits that she has no evidence that others are engaging in sexual activity. She denies side effects from medications. She tells me that she wants to be in psychotherapy. She has no physical complaints. Weighing the relevant factors and based on the available evidence, I internet systems administrator that the patient no longer meets criteria for involuntary psychiatric hospitalization. There is no evidence of imminent risk of harm to self or others at this point, nor is there evidence of severe self-care deficit to substantiate ongoing involuntary psychiatric hospitalization. The patient's mother is also willing to assume care of patient's case. I will discharge the patient today into mother's care with psychiatric follow-up as arranged by counselor. Patient is also to follow up with primary care. Patient to abstain from substances of abuse. Patient to return to psychiatric emergency room for any concerning symptoms as part of a general safety plan. We will administer initial dose of Haldol decanoate 100 mg IM prior to discharge with plans for patient to obtain booster dose of Haldol Decanoate in the amount of 150 mg IM in approximately 7 days to bring the total IM dose to 10 times the oral daily dose. Subsequent Haldol decanoate injections are recommended to be at a dose of 250 mg every month. - Discharge Discharge Date: 08/09/18 - Discharge Diagnosis (1) Schizophrenia, disorganized type Diagnosis: Principal (Improved versus admission) Code(s): F20.1 - Disorganized schizophrenia Status: Acute (2) Cannabis abuse Diagnosis: Secondary (Counseled to quit) Code(s): F12.10 - Cannabis abuse, uncomplicated Status: Chronic Discharge Disposition: Home - Discharge Instructions Discharge Diet: Regular Diet Activities You Can Perform: Weight Bearing As Tolerat - Discharge Time > 30 minutes Mental Status Examination Appearance: Appropriate Consciousness: Alert Orientation: x4 Motor Activity: Normal gait, Other (No abnormal motor movements noted.) Speech: Unremarkable Language: Adequate Fund of Knowledge: Adequate Attention and Concentration: Adequate (Fair) Memory: Unremarkable Mood: Appropriate Affect: Blunt Thought Process & Associations: Intact Thought Content: Preoccupations (Sexual preoccupation) Hallucination Type: None Delusion Type: None Suicidal Ideation: No Suicidal Plan: No Suicidal Intention: No Homicidal Ideation: No Homicidal Plan: No Homicidal Intention: No Insight: Poor Judgment: Poor Discharge/Advance Care Plan - Results Vital Signs: Last Vital Signs Temp 98.7 F 08/09/18 06:00 Pulse 80 08/09/18 06:00 Resp 17 08/09/18 06:00 BP 98/52 L 08/09/18 06:00 Pulse Ox 96 08/09/18 06:00 Lab Results: Laboratory Results Hemoglobin A1c 4.7 % (4.3-6.0) 08/05/18 09:08 Triglycerides 106 mg/dL (42-150) 08/05/18 09:08 Cholesterol 129 mg/dL (120-200) 08/05/18 09:08 LDL Cholesterol, Calc 57 mg/dL (0-99) 08/05/18 09:08 HDL Cholesterol 50.9 mg/dL (40.0-60.0) 08/05/18 09:08 TSH 1.510 uIU/mL (0.358-3.740) 07/28/18 06:30 Summary of Procedures: None done Pending Results: None - Medications Number of antipsychotic medications at discharge: 1 (Haldol PO + Dec.) - Discharge Care Plan Goals to Promote Your Health: * To prevent worsening of your condition and complications * To maintain your health at the optimal level Directions to Meet Your Goals: Take your medications as prescribed Follow your dietary instruction Follow activity as directed Keep your appointments as scheduled Take your immunizations and boosters as scheduled If your symptoms worsen call your PCP, if no PCP go to Urgent Care Center or Emergency Room For 11/05 questions related to your inpatient stay or results of tests pending at discharge, please contact Dr. George Natarajan MD at Smoking is Dangerous to Your Health. Avoid second hand smoking
[2018-08-09] MEDS: Haloperidol 5 MG Tablet PO SCH (08:47)
[2018-08-09] MEDS ORDERED: Haloperidol Decanoate Inj 50 MG/ML Ampul IM ONE (09:15)
== END 2018-08-09 13:40 | disposition home or self-care (01) ==
LOC: NEPC 06:08 → NEDA 17:00 → H270 17:33
PROVIDERS: ADMIT Psychiatry & Neurology Psychiatry; ATTEND Psychiatry & Neurology Psychiatry

== ENCOUNTER 2018-08-11 05:39 | Inpatient (IN) ==
--- NOTE | 2018-08-11 06:09 | ED ---
HPI General Chief Complaint: Psychiatric Symptoms Stated Complaint: psych screen/[facility] Time Seen by Provider: 08/11/18 05:41 Source: patient Mode of arrival: ambulatory Limitations: no limitations History of Present Illness HPI Narrative: 27-year-old white female presents emergency department under [place] act by PD. Please were called to the scene of a patient who is acting bizarre. The patient was standing on a chair on the second story. The patient was disorganized and paranoid. She was placed under a Crowe act . He was the patient is unable to answer questions. Related Data Home Medications Medication Instructions Recorded Confirmed No Known Home Medications 08/11/18 08/11/18 Allergies Allergy/AdvReac Type Severity Reaction Status Date / Time No Known Allergies Allergy Verified 08/11/18 06:16 Review of Systems ROS Unobtainable ROS Unobtainable: unobtainable due to mental condition PMFSH Medical History Medical History Patient denies medical problems (Acute) Surgical History Surgical History No history of previous surgery (Acute) Social History Social History Substance History: Active Abuse Second Hand Smoke Exposure: No Smoking Status: Never smoker How Often Do You Have a Drink Containing Alcohol: Never Recent Travel in [facility] within the Last 8 Weeks: No Recent Out of Country Travel within the Last 8 Weeks: No Exam Narrative Exam Narrative: GENERAL: Well-nourished, well-developed patient. SKIN: Warm and dry. HEAD: Normocephalic and atraumatic. EYES: No scleral icterus. No injection or drainage. ENT: No nasal drainage noted. Mucous membranes pink. Airway patent. NECK: Supple, trachea midline. Moves head freely without obvious discomfort. CARDIOVASCULAR: Regular rate and rhythm without murmurs, gallops, or rubs. RESPIRATORY: Breath sounds equal bilaterally. No accessory muscle use. GASTROINTESTINAL: Abdomen soft, non-tender, nondistended. EXTREMITIES: No cyanosis or edema. BACK: Nontender without obvious deformity. No CVA tenderness. NEURO: Patient is alert and oriented. no sensorimotor deficits. Nonfocal. Normal speech. PSYCH: Patient is acutely delusional and paranoid. Course Initial Documented Vital Signs Temperature 98.3 F 08/11/18 05:43 Pulse Rate 93 H 08/11/18 05:43 Respiratory Rate 18 08/11/18 05:43 Blood Pressure 123/74 08/11/18 05:43 Pulse Oximetry 99 08/11/18 05:43 Last Documented Vital Signs Temperature 97.9 F 08/17/18 17:49 Pulse Rate 77 08/17/18 17:49 Respiratory Rate 18 08/17/18 17:49 Blood Pressure 130/60 08/17/18 17:49 Pulse Oximetry 98 08/17/18 17:49 Medical Decision Making MDM Narrative Medical decision making narrative: We will obtain routine laboratory testing for medical clearance Medical Screen Exam Complete: Yes Emergency Medical Condition: Yes Differential Diagnosis Differential Diagnosis: MDM: High Differential diagnoses: Schizophrenia, schizoaffective disorder, bipolar, anxiety, depression, adjustment reaction, mood disorder NOS, ODD, depressive disorder NOS, psychosis NOS, substance induced mood disorder, infection, electrolyte abnormality, malingering. Mental health screening discussed with the patient. Psychiatric screen ordered. Lab Data Result diagrams: 08/11/18 06:11 08/12/18 08:45 POC Results POC Urine Results Negative Lab Results 08/11/18 08/11/18 08/11/18 Range/Units 06:11 06:11 07:15 WBC 9.0 (4.0-11.0) th/mm3 RBC 4.55 (4.00-5.30) mil/mm3 Hgb 14.6 (11.6-15.3) gm/dL Hct 42.7 (35.0-46.0) % MCV 93.7 (80.0-100.0) fL MCH 32.0 (27.0-34.0) pg MCHC 34.1 (32.0-36.0) % RDW 13.4 (11.6-17.2) % Plt Count 201 D (150-450) th/mm3 MPV 9.1 (7.0-11.0) fL Neut % (Auto) 66.7 (16.0-70.0) % Lymph % (Auto) 24.8 (9.0-44.0) % Morrow % (Auto) 7.6 (0.0-8.0) % Eos % (Auto) 0.6 (0.0-4.0) % Baso % (Auto) 0.3 (0.0-2.0) % Neut # (Auto) 6.0 (1.8-7.7) th/mm3 Lymph # (Auto) 2.2 (1.0-4.8) th/mm3 [place]row # (Auto) 0.7 (0.0-0.9) th/mm3 Eos # (Auto) 0.1 (0.0-0.4) th/mm3 Baso # (Auto) 0.0 (0.0-0.2) th/mm3 WBC Differential . Differential Comment Auto diff final Sodium 139 (136-145) meq/L Potassium 4.1 (3.5-5.1) meq/L Chloride 105 (98-107) meq/L Carbon Dioxide 28.7 (21.0-32.0) meq/L Anion Gap 5 (5-15) meq/L BUN 4 L (7-18) mg/dL Creatinine 0.63 (0.50-1.00) mg/dL Estimated GFR Greater than 89 (>89) mL/min Random Glucose 103 (74-106) mg/dL Hemoglobin A1c (4.3-6.0) % Calcium 8.4 L (8.5-10.1) mg/dL Magnesium 2.3 (1.5-2.5) mg/dL Total Bilirubin 0.3 (0.2-1.0) mg/dL AST 12 L (15-37) U/L ALT 22 (10-53) U/L Alkaline Phosphatase 71 (45-117) U/L Total Protein 7.7 (6.4-8.2) g/dL Albumin 4.1 (3.4-5.0) g/dL Triglycerides (42-150) mg/dL Cholesterol (120-200) mg/dL LDL Cholesterol, Calc (0-99) mg/dL HDL Cholesterol (40.0-60.0) mg/dL Cholesterol/HDL Ratio Ratio TSH 3.050 (0.358-3.740) uIU/mL Urine Color (Yellw/Straw) Urine Clarity (Clear) Urine pH (5.0-8.5) Ur Specific [place] (1.002-1.035) Urine Protein (Neg-Trace) mg/dL Urine Glucose (UA) (Negative) mg/dL Urine Ketones (Negative) mg/dL Urine Occult Blood (Negative) Urine Nitrate (Negative) Urine Bilirubin (Negative) Urine Urobilinogen (Less than 2) mg/dL Ur Leukocyte Esterase (Negative) Urine RBC (0-3) /hpf Urine WBC (0-5) /hpf Urine Mucus (Occasional) /lpf Micro UA Comment Ur Microscopic Review Urine Culture Comments Urine Opiates Screen Neg (Neg) Ur Barbiturates Screen Neg (Neg) Ur Amphetamines Screen Neg (Neg) U Benzodiazepines Scrn Neg (Neg) Urine Cocaine Screen Neg (Neg) U Cannabinoids Screen Neg (Neg) Serum Alcohol Less than 3 (0-5) mg/dL Chlam trachomat DNA PCR (Not Detect) N.gonorrhoeae DNA (PCR) (Not Detect) 08/12/18 08/12/18 08/16/18 Range/Units 08:45 08:45 18:15 WBC (4.0-11.0) th/mm3 RBC (4.00-5.30) mil/mm3 Hgb (11.6-15.3) gm/dL Hct (35.0-46.0) % MCV (80.0-100.0) fL MCH (27.0-34.0) pg MCHC (32.0-36.0) % RDW (11.6-17.2) % Plt Count (150-450) th/mm3 MPV (7.0-11.0) fL Neut % (Auto) (16.0-70.0) % Lymph % (Auto) (9.0-44.0) % Morrow % (Auto) (0.0-8.0) % Eos % (Auto) (0.0-4.0) % Baso % (Auto) (0.0-2.0) % Neut # (Auto) (1.8-7.7) th/mm3 Lymph # (Auto) (1.0-4.8) th/mm3 Morrow # (Auto) (0.0-0.9) th/mm3 Eos # (Auto) (0.0-0.4) th/mm3 Baso # (Auto) (0.0-0.2) th/mm3 WBC Differential Differential Comment Sodium 140 (136-145) meq/L Potassium 4.2 (3.5-5.1) meq/L Chloride 104 (98-107) meq/L Carbon Dioxide 26.9 (21.0-32.0) meq/L Anion Gap 9 (5-15) meq/L BUN 11 (7-18) mg/dL Creatinine 0.78 (0.50-1.00) mg/dL Estimated GFR Greater than 89 (>89) mL/min Random Glucose 80 (74-106) mg/dL Hemoglobin A1c 4.6 (4.3-6.0) % Calcium 8.9 (8.5-10.1) mg/dL Magnesium (1.5-2.5) mg/dL Total Bilirubin (0.2-1.0) mg/dL AST (15-37) U/L ALT (10-53) U/L Alkaline Phosphatase (45-117) U/L Total Protein (6.4-8.2) g/dL Albumin (3.4-5.0) g/dL Triglycerides 70 (42-150) mg/dL Cholesterol 133 (120-200) mg/dL LDL Cholesterol, Calc 57 (0-99) mg/dL HDL Cholesterol 62.0 H (40.0-60.0) mg/dL Cholesterol/HDL Ratio 2.14 Ratio TSH (0.358-3.740) uIU/mL Urine Color (Yellw/Straw) Urine Clarity (Clear) Urine pH (5.0-8.5) Ur Specific [place] (1.002-1.035) Urine Protein (Neg-Trace) mg/dL Urine Glucose (UA) (Negative) mg/dL Urine Ketones (Negative) mg/dL Urine Occult Blood (Negative) Urine Nitrate (Negative) Urine Bilirubin (Negative) Urine Urobilinogen (Less than 2) mg/dL Ur Leukocyte Esterase (Negative) Urine RBC (0-3) /hpf Urine WBC (0-5) /hpf Urine Mucus (Occasional) /lpf Micro UA Comment Ur Microscopic Review Urine Culture Comments Urine Opiates Screen (Neg) Ur Barbiturates Screen (Neg) Ur Amphetamines Screen (Neg) U Benzodiazepines Scrn (Neg) Urine Cocaine Screen (Neg) U Cannabinoids Screen (Neg) Serum Alcohol (0-5) mg/dL Chlam trachomat DNA PCR Not detected (Not Detect) N.gonorrhoeae DNA (PCR) Not detected (Not Detect) 08/16/18 Range/Units 18:15 WBC (4.0-11.0) th/mm3 RBC (4.00-5.30) mil/mm3 Hgb (11.6-15.3) gm/dL Hct (35.0-46.0) % MCV (80.0-100.0) fL MCH (27.0-34.0) pg MCHC (32.0-36.0) % RDW (11.6-17.2) % Plt Count (150-450) th/mm3 MPV (7.0-11.0) fL Neut % (Auto) (16.0-70.0) % Lymph % (Auto) (9.0-44.0) % [place] % (Auto) (0.0-8.0) % Eos % (Auto) (0.0-4.0) % Baso % (Auto) (0.0-2.0) % Neut # (Auto) (1.8-7.7) th/mm3 Lymph # (Auto) (1.0-4.8) th/mm3 [place]row # (Auto) (0.0-0.9) th/mm3 Eos # (Auto) (0.0-0.4) th/mm3 Baso # (Auto) (0.0-0.2) th/mm3 WBC Differential Differential Comment Sodium (136-145) meq/L Potassium (3.5-5.1) meq/L Chloride (98-107) meq/L Carbon Dioxide (21.0-32.0) meq/L Anion Gap (5-15) meq/L BUN (7-18) mg/dL Creatinine (0.50-1.00) mg/dL Estimated GFR (>89) mL/min Random Glucose (74-106) mg/dL Hemoglobin A1c (4.3-6.0) % Calcium (8.5-10.1) mg/dL Magnesium (1.5-2.5) mg/dL Total Bilirubin (0.2-1.0) mg/dL AST (15-37) U/L ALT (10-53) U/L Alkaline Phosphatase (45-117) U/L Total Protein (6.4-8.2) g/dL Albumin (3.4-5.0) g/dL Triglycerides (42-150) mg/dL Cholesterol (120-200) mg/dL LDL Cholesterol, Calc (0-99) mg/dL HDL Cholesterol (40.0-60.0) mg/dL Cholesterol/HDL Ratio Ratio TSH (0.358-3.740) uIU/mL Urine Color Colorless (Yellw/Straw) Urine Clarity Clear (Clear) Urine pH 6.0 (5.0-8.5) Ur Specific [place] 1.002 (1.002-1.035) Urine Protein Negative (Neg-Trace) mg/dL Urine Glucose (UA) Negative (Negative) mg/dL Urine Ketones Negative (Negative) mg/dL Urine Occult Blood Negative (Negative) Urine Nitrate Negative (Negative) Urine Bilirubin Negative (Negative) Urine Urobilinogen Less than 2 (Less than 2) mg/dL Ur Leukocyte Esterase Negative (Negative) Urine RBC Less than 1 (0-3) /hpf Urine WBC Less than 1 (0-5) /hpf Urine Mucus Few H (Occasional) /lpf Micro UA Comment Culture not ind Ur Microscopic Review Not Reportable Urine Culture Comments Culture not ind Urine Opiates Screen (Neg) Ur Barbiturates Screen (Neg) Ur Amphetamines Screen (Neg) U Benzodiazepines Scrn (Neg) Urine Cocaine Screen (Neg) U Cannabinoids Screen (Neg) Serum Alcohol (0-5) mg/dL Chlam trachomat DNA PCR (Not Detect) N.gonorrhoeae DNA (PCR) (Not Detect) Imaging Data Radiologist's impression: Foot X-Ray 08/13/18 00:00 CONCLUSION: Nondisplaced fracture through the base of the fifth metatarsal. Discharge Plan Discharge Disposition Patient Disposition: 30 Still Patient Discharge Condition Condition: Stable Physicians Team ED Provider: Tonie Victoria ED Midlevel Provider: Ricardo Hough Primary Care Provider: UNKNOWN, Attending Provider: George Natarajan Other Providers: Nirmala Maza Interventions Interventions: ED Discharge Assessment Last Done: 08/11/18 15:00 Status ED Status: Left Department Discharge Information Discharge Date/Time: 08/11/18 15:00
[2018-08-11 06:32] LABS: Baso % (Auto) 0.3 % (0.0-2.0); Eos # (Auto) 0.1 th/mm3 (0.0-0.4); Eos % (Auto) 0.6 % (0.0-4.0); Hematocrit 42.7 % (35.0-46.0); Hemoglobin 14.6 gm/dL (11.6-15.3); Lymph # (Auto) 2.2 th/mm3 (1.0-4.8); Lymph % (Auto) 24.8 % (9.0-44.0); Mean Corpuscular HGB Conc 34.1 % (32.0-36.0); Mean Corpuscular Volume 93.7 fL (80.0-100.0); Mean Platelet Volume 9.1 fL (7.0-11.0); Mono # (Auto) 0.7 th/mm3 (0.0-0.9); Mono % (Auto) 7.6 % (0.0-8.0); Neut % (Auto) 66.7 % (16.0-70.0); Platelet Count 201 th/mm3 (150-450); Red Blood Count 4.55 mil/mm3 (4.00-5.30); Red Cell Distribution Width 13.4 % (11.6-17.2)
[2018-08-11 06:46] LABS: Alanine Aminotransferase 22 U/L (10-53); Albumin 4.1 g/dL (3.4-5.0); Anion Gap 5 meq/L (5-15); Aspartate Aminotransferase 12 U/L (15-37); Calcium 8.4 mg/dL (8.5-10.1); Carbon Dioxide 28.7 meq/L (21.0-32.0); Chloride 105 meq/L (98-107); Glomerular Filtration Rate Greater Than 89 mL/min (>89); Glucose,Random 103 mg/dL (74-106); Magnesium 2.3 mg/dL (1.5-2.5); Potassium 4.1 meq/L (3.5-5.1); Sodium 139 meq/L (136-145)
[2018-08-11 06:54] LABS: Alkaline Phosphatase 71 U/L (45-117); Blood Urea Nitrogen 4 mg/dL (7-18); Total Protein 7.7 g/dL (6.4-8.2)
[2018-08-11 07:53] LABS: Amphetamine Screen,Urine Neg (Neg); Barbiturate Screen,Urine Neg (Neg); Cannabinoid Screen,Urine Neg (Neg); Cocaine Screen,Urine Neg (Neg); Opiate Screen,Urine Neg (Neg)
[2018-08-11] MEDS ORDERED: Aluminum/Magnesium/Simethacone Susp 30 ML UDC PO PRN (13:28)
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
[2018-08-12 09:51] LABS: Anion Gap 9 meq/L (5-15); Blood Urea Nitrogen 11 mg/dL (7-18); Calcium 8.9 mg/dL (8.5-10.1); Carbon Dioxide 26.9 meq/L (21.0-32.0); Chloride 104 meq/L (98-107); Glomerular Filtration Rate Greater Than 89 mL/min (>89); Glucose,Random 80 mg/dL (74-106); Potassium 4.2 meq/L (3.5-5.1); Sodium 140 meq/L (136-145)
[2018-08-12 09:53] LABS: Cholesterol 133 mg/dL (120-200); Triglycerides 70 mg/dL (42-150)
[2018-08-12 09:55] LABS: Chol/HDL Ratio 2.14 Ratio; LDL Cholesterol,Calculated 57 mg/dL (0-99)
--- NOTE | 2018-08-12 10:47 | P.HPPSY ---
Provisional Diagnosis Admission Date: August 11, 2018 13:38 [place].: 1. 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 History of cannabis abuse [place].: Deferred Competence Certification of Person's Competence To Provide Express and Informed Consent I have personally examined Tanisha Briseno, a person being served at [facility] on, August 12, 2018 1047. Express and informed consent means consent voluntarily given in writing, by a competent person, after sufficient explanation and disclosure of the subject matter involved to enable the person to make a knowing and willful decision without any element of force, fraud, deceit, duress, or other form of constraint or coercion. This person is 18 years of age or older, is not now known to be incompetent to consent to treatment with a guardian advocate, and does not have a health care surrogate or proxy currently making medical treatment decisions. I have found this person to be one of the following: [X] Competent to provide express and informed consent, as defined above, for voluntary admission to this facility and is competent to provide express and informed consent for treatment. He/she has the consistent capacity to make well reasoned, willful, and knowing decisions concerning his or her medical or mental health treatment. The person fully and consistently understands the purpose of the admission for examination/placement and is fully capable of personally exercising all rights assured under [place] Incompetent to provide express and informed consent to voluntary admission, and this is incompetent to provide express and informed consent to treatment. The person must be transferred to involuntary status and a petition for a guardian advocate filed with the Circuit Court. [] Refusing to provide express and informed consent to voluntary admission but is competent to provide express and informed consent for treatment. The person must be discharged or transferred to involuntary status. Form shall be completed within 24 hours of a person's arrival at the receiving facility and filed in the clinical record of each person: 1. Admitted on a voluntary basis 2. Permitted to provide express and informed consent to his/her own treatment 3. Allowed to transfer from involuntary to voluntary status 4. Prior to permitting a person to consent to his or her own treatment after having been previously found incompetent to consent to treatment. History of Present Illness Capacity: Has capacity Chief Complaint: [place] Act History of Present Illness: Ms. Briseno is a 27 year-old female with a history of schizophrenia who presents under a [place] Act by law enforcement alleging in part that patient is "DELUSIONAL AND MAKING ERRATIC STATEMENTS. WHEN OFFICERS MADE CONTACT WITH MS. BRISENO SHE WAS STANDING ON TOP OF A LAWN CHAIR ON THE SECOND FLOOR LEDGE CAUSING IMMANENT DANGER TO HERSELF." Patient was just discharged from the inpatient psychiatric unit into mother's care. EMR reviewed. Patient seen and examined with nurse. Chart reviewed. Case discussed with nursing staff. Per nursing, patient has been picking on a female patient with intellectual disabilities on the unit. On my examination today, the patient denies that her standing on the chair represented any sort of suicidal attempt. She says that she was simply trying to get a better view of the police. She denies any suicidal or homicidal ideation, intent or plan now. She denies any audiovisual hallucinations although she does appear internally preoccupied. She describes her mood as "happy" and her affect is somewhat silly. Sleep and appetite are reportedly fair. She remains fixated on Bebeto Julien and also on a man named Wu Page, who she says is jailed for his ownership of the [employer] a [employer]. Her narrative is laced with references to drugs of abuse, although she denies any recent substance use and her UTox is negative. She also is perseverative on baptism issues as before. She declares that she is a david-Nazi and that she does not like liberals. At the same time, she reports she is fasting for Yom Kippur. She has, in fact, been eating and is noted to ask for snacks at the conclusion of our interview. Remainder of the psychiatric ROS is negative. No acute physical complaints. Patient is willing to remain on the inpatient psychiatric unit for further observation and stabilization. Past psychiatric history: History of schizophrenia. Recently hospitalized here at [facility] and before that at [facility]. She was started on Haldol Decanoate during her last hospitalization, but when I ask if she was adherent with her oral Haldol supplementation on discharge she replies "of course not." Patient was referred for outpatient mental health services on discharge last time but was unable to follow-up according to notes. No reported history of suicide attempts. Patient reports that she has done well with Seroquel in the past and would be willing to try this agent or lithium now. Family history: No known family history of mental illness. Chemical dependency history: Patient denies recent abuse of drugs or alcohol. Social history: Patient most recently was residing with mother. She was previously homeless. Social history is somewhat limited by patient's current psychiatric symptomatology. - Inpatient Certification I certify that the inpatient services were ordered in accordance with Medicare regulations governing the order. This includes certification that hospital inpatient services are reasonable and necessary and in the case of services not specified as inpatient-only under 42 CFR 419.22(n), that they are appropriately provided as inpatient services in accordance to with the 2-midnight benchmark under 43 CFR 412.3(e) I certify that inpatient psychiatric hospital services are medically necessary. Evaluation and treatment and/or diagnostic testing are expected to improve the patient's condition. The patient needs on a daily basis, active treatment furnished directly by or requiring the supervision of inpatient psychiatric facility personnel. Estimated Total Length of Stay (Days): 9 (7-9) Plans for Post Hospital Care: Home Review of Systems All other systems reviewed negative except as stated in HPI (Limitation: psychosis) PMFSH - History History Provided By: Patient - Medical History Medical History: Medical History (Last Reviewed 08/11/18 @ 06:13 by Stephanie Tian RN) Patient denies medical problems - Surgical History Surgical History: Surgical History (Last Reviewed 08/11/18 @ 06:13 by Stephanie Tian RN) No history of previous surgery - Tobacco History Second Hand Smoke Exposure: No Tobacco Use In Past 30 Days: No Smoking Status: Never smoker - Alcohol History How Often Do You Have a Drink Containing Alcohol: Never - Substance Use History Substance History: Active Abuse - Substance Use Type Marijuana Status: Active - Travel History Recent Travel in the [place] Within the Last 8 Weeks: No Recent Travel Out of the Country Within the Last 8 Weeks: No - Immunization History Tetanus Immunization: Unsure Hx Influenza Vaccine This Season: No Quality Measures - Psychiatric History Psychological trauma history: No reported history of trauma by pt. - Patient Strengths Patient's strengths (minimum of 2): In a monitored setting. Verbally fluent. Medications and Allergies Active Medications: Active Medications Al Hydrox/Mg Hydrox/Simethicone (Mag-Al Plus Susp Liq) 30 ml PO Q6H PRN PRN Reason: DYSPEPSIA Al Hydroxide/Mg Hydroxide (Milk Of Magnesia Liq) 30 ml PO Q12H PRN PRN Reason: Mild Constipation Lactulose (Lactulose Liq) 30 ml PO DAILY PRN PRN Reason: SEVERE CONSITIPATION Lorazepam (Ativan Inj) 1 mg IM Q6H PRN PRN Reason: MODERATE TO SEVERE ANXIETY Sennosides (Senokot) 17.2 mg PO Q12H PRN PRN Reason: Moderate Constipation Ziprasidone (Geodon Inj) 20 mg IM Q12H PRN PRN Reason: SEVERE AGITATION Allergies Allergy/AdvReac Type Severity Reaction Status Date / Time No Known Allergies Allergy Verified 08/11/18 06:16 Home Medications Medication Instructions Recorded Confirmed Type No Known Home Medications 08/11/18 08/11/18 History Results - Labs CBC & Chem 7: 08/11/18 06:11 08/12/18 08:45 Labs: Laboratory Results - last 24 hr 08/12/18 08:45 Sodium 140 Potassium 4.2 Chloride 104 Carbon Dioxide 26.9 Anion Gap 9 BUN 11 Creatinine 0.78 Estimated GFR Greater than 89 Random Glucose 80 Calcium 8.9 Triglycerides 70 Cholesterol 133 LDL Cholesterol, Calc 57 HDL Cholesterol 62.0 H Cholesterol/HDL Ratio 2.14 Labs reviewed. ED point of care test negative. Exam Vital signs: Vital Signs 08/11/18 14:30 08/12/18 05:46 Temperature 98.1 F 97.8 F Pulse Rate 103 H 63 Respiratory Rate 18 18 Blood Pressure 103/65 101/59 L Pulse Oximetry 97 99 Intake & Output 08/11/18 08/12/18 08/12/18 18:59 06:59 18:59 Weight 64.3 kg Other: Weight On Admission 65 kg Narrative: A physical examination was completed by the ED provider. On my examination today, the patient appears to be in no acute physical distress. She has no signs of intoxication or withdrawal from a substance. She has no abnormal motor movements. Laboratories and vital signs are reviewed. Mental Status Examination Appearance: Appropriate Consciousness: Alert Orientation: Person, Place (At least) Motor Activity: Normal gait, Other (No motoric abnormalities noted) Speech: Unremarkable Language: Other (Somewhat rambling) Fund of Knowledge: Adequate Attention and Concentration: Easily distracted Memory: Impaired (Psychosis interferes somewhat) Mood: Other ("Happy") Affect: Other (Silly) Thought Process & Associations: Tangential Thought Content: Bizarre thinking, Preoccupations (with Bebeto Victoria and Wu Page. Pentecostal preoccupation.) Hallucination Type: Other (Denies AVH but does appear internally stimulated) Delusion Type: None Suicidal Ideation: No Suicidal Plan: No Suicidal Intention: No Homicidal Ideation: No Homicidal Plan: No Homicidal Intention: No Insight: Poor Judgment: Poor Assessment and Plan - Assessment (1) Schizophrenia Code(s): F20.9 - Schizophrenia, unspecified Status: Acute - Plan Plan: 27 year-old female with psychiatric history as detailed above who presents under a [place] Act. On my examination today, patient reports that she was non- adherent with psychotropic medications after discharge. However, perhaps as a consequence of her relatively rapid return to the inpatient unit, the patient is not nearly as decompensated with respect to her psychotic illness as she was when she was initially hospitalized here earlier in the month. I will plan to admit the patient to the inpatient psychiatric unit for further medication adjustment and stabilization. Admit inpatient. I beverage server that the patient is capacitated to consent for voluntary admission, which she is willing to do. Voluntary status. Patient reports a prior good response to Seroquel in the past and would like to resume this agent after our discussion of her pharmacotherapeutic options. She is in need of an oral antipsychotic to supplement Haldol Dec, and so I will start Seroquel 50mg BID with plans to titrate to effect and as tolerated. Patient may benefit from additional Haldol Dec given issues with medication adherence on an outpatient basis, and I will plan to discuss this option with her later in the hospital stay. Atarax as needed for anxiety. Melatonin as needed for sleep. Given that her behavior in the setting of her psychosis is somewhat disruptive to the milieu, I will order the patient to be transferred to [facility] psychiatric unit, where it is hoped her behaviors will be less disruptive. Occupational therapy consultation. Vitals every shift. Counselor to see. Collateral information. Disposition planning. Estimated length of stay: 7-9 days. Justification for Continued Inpatient Stay: Medication changes. Impairment in reality construction. High risk for decompensation in less restrictive environment. Discharge Planning: Pending psychiatric stabilization. Request Healthcare Surrogate/Guardian Advocate?: No (1) Schizophrenia Qualifiers: Schizophrenia type: unspecified Qualified Code(s): F20.9 - Schizophrenia, unspecified
[2018-08-12] MEDS ORDERED: Acetaminophen 325 MG Tablet PO PRN (14:00)
[2018-08-12 15:59] LABS: Hemoglobin A1c 4.6 % (4.3-6.0)
[2018-08-12] MEDS: QUEtiapine 25 MG Tablet PO SCH (21:11)
[2018-08-12] MEDS: Melatonin 5 MG Tablet PO PRN (21:11)
[2018-08-13] MEDS: QUEtiapine 25 MG Tablet PO SCH ×2 (08:41→21:21)
--- NOTE | 2018-08-13 08:42 | P.TTN ---
- Patient Problems Problems: 1. Discharge planning 2. Medication compliance 3. Knowledge deficit 4. Lack of coping skills - Progress Toward Goals Provider Present: Dr. Haja Natarajan (Dr. Natarajan is titrating medications, patient remains in need of further stabilization.) Psychiatric Counselors Present: Jude Carrasco Jr., [facility] (Counselor met with patient to discuss discharge plan. Patient will return to her mother's home upon) Group Spec/RT/OT/RYAN Present: Luz Pandya, CHETAN (And select groups.) - Documentation Teaching Recipient: Patient
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
--- NOTE | 2018-08-13 16:08 | XR ---
EXAM DATE: 08/13/2018 4:04 PM EDT AGE/SEX: 27 years / Female INDICATIONS: Pain. CLINICAL DATA: This is the patient's initial encounter. Patient reports that signs and symptoms have been present for 1 week and indicates a pain score of 2/10. MEDICAL/SURGICAL HISTORY: None. None. COMPARISON: No prior exams available for comparison. FINDINGS: Limited AP and lateral views of the left foot were obtained and not a standard 3 view trauma study li miting the sensitivity. There is a transverse fracture through the base of the fifth metatarsal with lucency. There is mild overlying soft tissue swelling. CONCLUSION: Nondisplaced fracture through the base of the fifth metatarsal. Electronically signed by: Michel Mcmanus MD 08/13/2018 4:07 PM EDT
--- NOTE | 2018-08-13 20:38 | MB ---
cc: Nirmala Maza DPM DATE: 08/13/2018 CHIEF COMPLAINT: Left foot fracture. HISTORY OF PRESENT ILLNESS: Ms. Briseno states that when she was in [place], she fractured the left foot. She is not sure exactly how long ago, but she believes about 6 months ago. She went to 3 different ERs, and they all told her to stay off her foot, but eventually someone told her it was okay to walk on it, so she began to walk on it. She is uncertain as to how long she was nonweightbearing. She states that she is able to ambulate on it but it is very uncomfortable, and she has some popping noise and is unable to put full pressure on it. She is currently admitted under [facility] for her mental state. PAST MEDICAL HISTORY, SURGICAL HISTORY AND FAMILY HISTORY: Noncontributory. SOCIAL HISTORY: The patient denies smoking, alcohol or drug use, but does use marijuana on a regular basis. ALLERGIES: NO KNOWN DRUG ALLERGIES. LABORATORY DATA: Labs are all within normal limits. Foot x-ray of the left foot shows a nondisplaced fracture through the base of the fifth metatarsal that appears subacute. PHYSICAL EXAM: The patient has palpable DP and PT pulses. Capillary time is less than 3 seconds. Gross sensation is intact. Protective sensation intact. Mild discomfort to the fifth metatarsal base. There is no edema. ASSESSMENT AND PLAN: 1. Left fifth metatarsal base fracture. - Fracture is nonoperative and can be treated conservatively with a Cam boot. Cam order has been placed. - Ice and elevation p.r.n. pain. Thank you for this consultation. The patient will need followup with a Medicaid provider for serial x-rays and appropriate treatment at time of discharge. MASTER Mcpherson/disha , 06:10 PM , 06:17 PM ARSALAN
[2018-08-14] MEDS: QUEtiapine 25 MG Tablet PO SCH ×2 (11:02→20:31)
--- NOTE | 2018-08-14 17:19 | P.PNPSY ---
Subjective Chief Complaint: [place] Act Remarks: Patient was seen and case discussed with nursing. Patient remains floridly psychotic. She has bizarre and paranoid delusions. She feels that she is a secret agent for the [employer] service and is here in admission. Continues to be preoccupied that she is . Believes that her mother was trying to kill her because her mother is envious of her. No inappropriate sexual behavior today. Patient denies suicidal or homicidal ideation intent or plan. Mental Status Examination Appearance: Appropriate Consciousness: Alert Orientation: Person, Place (At least) Motor Activity: Normal gait, Other (No abnormal motor movements noted) Speech: Unremarkable Language: Other (Rambling) Fund of Knowledge: Adequate Attention and Concentration: Easily distracted Memory: Impaired (Psychosis interferes somewhat) Mood: Other (Somewhat elevated) Affect: Other (Silly) Thought Process & Associations: Tangential Thought Content: Bizarre thinking, Delusional Hallucination Type: Other (Remains internally preoccupied) Delusion Type: Bizarre, Paranoid Suicidal Ideation: No Suicidal Plan: No Suicidal Intention: No Homicidal Ideation: No Homicidal Plan: No Homicidal Intention: No Insight: Poor Judgment: Poor Assessment and Plan - Assessment (1) Schizophrenia Code(s): F20.9 - Schizophrenia, unspecified Status: Acute - Plan Plan: Continue Seroquel titration Justification for Continued Inpatient Stay: Patient would decompensate in a less restrictive setting Request Healthcare Surrogate/Guardian Advocate?: No (1) Schizophrenia Qualifiers: Schizophrenia type: unspecified Qualified Code(s): F20.9 - Schizophrenia, unspecified
[2018-08-15] MEDS: QUEtiapine 25 MG Tablet PO SCH (09:50)
--- NOTE | 2018-08-15 11:23 | P.PNPSY ---
Subjective Chief Complaint: [place] Act Remarks: Patient was seen and case discussed with nursing. Today patient is oppositional and childlike. She refuses to get out of the covers. She remains bizarre and very psychotic. She is calling her nurse a dirty lesbian, she is saying that she will talk to her because she is not Scientology. Patient says she is Scientology and Quaker at the same time. Continues to be working for the [employer]. She denies suicidal or homicidal ideation intent or plan Mental Status Examination Appearance: Appropriate Consciousness: Alert Orientation: Person, Place (At least) Motor Activity: Normal gait, Other (No abnormal motor movements noted) Speech: Unremarkable Language: Other (Rambling) Fund of Knowledge: Adequate Attention and Concentration: Easily distracted Memory: Impaired (Psychosis interferes somewhat) Mood: Other (Somewhat elevated) Affect: Other (Silly) Thought Process & Associations: Tangential Thought Content: Bizarre thinking, Delusional Hallucination Type: Other (Remains internally preoccupied) Delusion Type: Bizarre, Paranoid Suicidal Ideation: No Suicidal Plan: No Suicidal Intention: No Homicidal Ideation: No Homicidal Plan: No Homicidal Intention: No Insight: Poor Judgment: Poor Assessment and Plan - Assessment (1) Schizophrenia Code(s): F20.9 - Schizophrenia, unspecified Status: Acute - Plan Plan: Continue Seroquel titration Justification for Continued Inpatient Stay: Patient would decompensate in a less restrictive setting Request Healthcare Surrogate/Guardian Advocate?: No (1) Schizophrenia Qualifiers: Schizophrenia type: unspecified Qualified Code(s): F20.9 - Schizophrenia, unspecified
[2018-08-15] MEDS: QUEtiapine 100 MG Tablet PO SCH (20:25)
--- NOTE | 2018-08-16 09:12 | P.PNPSY ---
Subjective Chief Complaint: Crowe Act Remarks: Patient seen and examined with nurse. Chart reviewed. I note we have received records from [facility], which I have reviewed. I note patient was seen by Dr. Hager who diagnosed BPAD, mixed with psychosis and placed the patient on Prolixin. Case discussed with nursing staff who reports patient makes bizarre statements at times but has been no real behavioral problem. Nurse also notes that people, possibly family, have been calling continuously ( sometimes reportedly using fanciful pseudonyms) trying to get information on the patient, who has refused to allow us to contact anyone. Nurse reports that staff have not provided any information to these callers. On my exam, patient presents as somewhat impulsive and affectively labile. She denies SI/HI/AVH. She remains preoccupied on pentecostal themes. She holds up a pillow to block her view of one of the techs who comes into the room. Denies side effects from medications. She reports that "Seroquel is good. I like it." Declines additional Haldol Dec and declines Prolixin. Complains of vaginal malodor. No other physical complaints. Vital Signs Temp Pulse Resp BP Pulse Ox 08/16/18 05:38 98.9 F 62 17 102/54 L 97 08/15/18 19:08 98.1 F 97 H 18 129/76 96 Intake and Output 08/15/18 08/16/18 08/16/18 22:59 06:59 14:59 Intake Total 2240 / 2240 Balance 2240 / 2240 Intake: Oral 2140 / 2140 Oral Supplement 100 / 100 Other: # Voids 3 4 Labs reviewed. Review of Systems All other systems reviewed negative except as stated in HPI Mental Status Examination Appearance: Appropriate Consciousness: Alert Orientation: Person, Place (At least) Motor Activity: Normal gait, Other (No motor abnormalities noted.) Speech: Unremarkable Language: Other (Rambling) Fund of Knowledge: Adequate Attention and Concentration: Easily distracted Memory: Impaired (Psychosis interferes) Mood: Other (Somewhat elevated) Affect: Other (Silly) Thought Process & Associations: Tangential Thought Content: Bizarre thinking, Delusional Hallucination Type: Other (Internally stimulated) Delusion Type: Bizarre, Paranoid Suicidal Ideation: No Suicidal Plan: No Suicidal Intention: No Homicidal Ideation: No Homicidal Plan: No Homicidal Intention: No Insight: Poor Judgment: Poor Mental Status Exam Remarks: L foot in boot. Assessment and Plan - Assessment (1) Schizophrenia Code(s): F20.9 - Schizophrenia, unspecified Status: Acute - Plan Plan: Continue current dose of Seroquel for now with plans for ongoing titration to effect. Podiatry input noted and appreciated. Will request hospitalist consultation for complaints of vaginal malodor. Continue to monitor on inpatient unit. Continue other meds and care as ordered. Justification for Continued Inpatient Stay: Risk for decompensation in less restrictive setting. Discharge Planning: Pending psychiatric stabilization. Request Healthcare Surrogate/Guardian Advocate?: No (1) Schizophrenia Qualifiers: Schizophrenia type: unspecified Qualified Code(s): F20.9 - Schizophrenia, unspecified
[2018-08-16] MEDS: QUEtiapine 100 MG Tablet PO SCH ×2 (09:36→21:49)
[2018-08-16] MEDS: metroNIDAZOLE 500 MG Tablet PO SCH ×2 (12:39→21:00)
--- NOTE | 2018-08-16 15:36 | P.CON ---
History of Present Illness Service: Hospitalist Consult date: 08/16/18 Requesting Physician: George Natarajan Reason for Consult: Medical management Primary Care Provider: UNKNOWN Chief Complaint: Vaginal discharge History of Present Illness: Patient is a 27-year-old female with no known past medical history. She was brought to the emergency room under Crowe act due to psychosis and disorganized thoughts. Hospitalist has been consulted due to complaint of vaginal discharge. Patient is seen in her room. She tells me she has a grayish discharge that smells very fishy. She has had similar before and was treated for BV successfully. She denies any pelvic pain or tenderness. No dysuria. She does tell me that she will frequently get a yeast infection after taking Flagyl and usually needs Diflucan for this. No other complaints-no chest pain or shortness of breath, no fever chills. No nausea vomiting or diarrhea. Review of Systems All other systems reviewed negative except as stated in HPI PMFSH - History History Provided By: Patient - Medical History Medical History: Medical History (Last Reviewed 08/16/18 @ 15:33 by WARNER Somers) Patient denies medical problems - Surgical History Surgical History: Surgical History (Last Reviewed 08/16/18 @ 15:33 by WARNER Somers) No history of previous surgery - Tobacco History Second Hand Smoke Exposure: No Tobacco Use In Past 30 Days: No Smoking Status: Never smoker - Alcohol History How Often Do You Have a Drink Containing Alcohol: Never - Substance Use History Substance History: Active Abuse - Substance Use Type Marijuana Status: Active - Travel History Recent Travel in the [place] Within the Last 8 Weeks: No Recent Travel Out of the Country Within the Last 8 Weeks: No - Immunization History Tetanus Immunization: Unsure Hx Influenza Vaccine This Season: No Medications and Allergies Active Medications: Active Medications Acetaminophen (Tylenol) 650 mg PO Q4H PRN PRN Reason: PAIN 1-10 AND/OR FEVER >101F Al Hydrox/Mg Hydrox/Simethicone (Mag-Al Plus Susp Liq) 30 ml PO Q6H PRN PRN Reason: DYSPEPSIA Al Hydroxide/Mg Hydroxide (Milk Of Magnesia Liq) 30 ml PO Q12H PRN PRN Reason: Mild Constipation Hydroxyzine HCl (Atarax) 50 mg PO Q6H PRN PRN Reason: ANXIETY Melatonin (Melatonin) 5 mg PO HS PRN PRN Reason: INSOMNIA Last Admin: 08/12/18 21:11 Dose: 5 mg Metronidazole (Flagyl) 500 mg PO BID [facility] Stop: 08/23/18 23:59 Last Admin: 08/16/18 12:39 Dose: 500 mg Quetiapine Fumarate (Seroquel) 150 mg PO BID [facility] Last Admin: 08/16/18 09:36 Dose: 150 mg Allergies Allergy/AdvReac Type Severity Reaction Status Date / Time No Known Allergies Allergy Verified 08/11/18 06:16 Home Medications Medication Instructions Recorded Confirmed Type No Known Home Medications 08/11/18 08/11/18 History Physical Exam Vital signs: Vital Signs 08/15/18 19:08 08/16/18 05:38 Temperature 98.1 F 98.9 F Pulse Rate 97 H 62 Respiratory Rate 18 17 Blood Pressure 129/76 102/54 L Pulse Oximetry 96 97 Intake & Output 08/15/18 08/16/18 08/16/18 18:59 06:59 18:59 Intake Total 720 / 720 1520 / 1520 Balance 720 / 720 1520 / 1520 Intake: Oral 720 / 720 1420 / 1420 Oral Supplement 100 / 100 Other: # Voids 3 4 Narrative: GENERAL: Well-nourished, well-developed adult female in no obvious distress. SKIN: Warm and dry. HEAD: Atraumatic. Normocephalic. CARDIOVASCULAR: Regular rate and rhythm. RESPIRATORY: No accessory muscle use. Clear to auscultation. Breath sounds equal bilaterally. GASTROINTESTINAL: Abdomen soft, non-tender, distended. Positive bowel sounds. : Vaginal exam deferred NEUROLOGICAL: Awake and alert. No obvious cranial nerve deficits. Motor grossly within normal limits. Normal speech. Assessment and Plan - Plan Patient is a 27-year-old female with no known medical history who is under Crowe act for psychosis and delusional behavior. Hospitalist service consulted for medical management of vaginal discharge. Bacterial vaginosis -Flagyl ordered. -We will order UA with C&G as well Thank you for this consult. We look forward to assisting you with the medical management of this patient
[2018-08-16 19:29] LABS: Bilirubin,Urine Negative (Negative); Clarity,Urine Clear (Clear); Color,Urine Colorless (Yellw/Straw); Glucose,Urine (UA) Negative (Negative); Leukocyte Esterase,Urine Negative (Negative); Mucus,Urine Few /lpf (Occasional); Nitrite,Urine Negative (Negative); Specific Gravity,Urine 1.002 (1.002-1.035)
[2018-08-17] MEDS: metroNIDAZOLE 500 MG Tablet PO SCH ×2 (08:08→21:00)
[2018-08-17] MEDS: QUEtiapine 100 MG Tablet PO SCH (08:09)
--- NOTE | 2018-08-17 09:29 | P.PN ---
Subjective Interval history: Patient seen and examined in her room. She does not report any complaints or concerns at the moment. Discussed the results of negative G&C, continue Flagyl. Patient sates that Flagyl works all the time. Denies any fevers, chills, N/V/D, or abdominal pain. Physical Exam Vital signs: Vital Signs 08/16/18 18:11 Temperature 97.4 F L Pulse Rate 88 Respiratory Rate 18 Blood Pressure 118/64 Pulse Oximetry 98 Intake & Output 08/16/18 08/17/18 08/17/18 18:59 06:59 18:59 Intake Total 1060 / 1060 Balance 1060 / 1060 Intake: Oral 960 / 960 Oral Supplement 100 / 100 Other: # Voids 1 Narrative: GENERAL: Well-nourished, well-developed adult female in no obvious distress. SKIN: Warm and dry. HEAD: Atraumatic. Normocephalic. CARDIOVASCULAR: Regular rate and rhythm. RESPIRATORY: No accessory muscle use. Clear to auscultation. Breath sounds equal bilaterally. GASTROINTESTINAL: Abdomen soft, non-tender, distended. Positive bowel sounds. : Vaginal exam deferred NEUROLOGICAL: Awake and alert. No obvious cranial nerve deficits. Motor grossly within normal limits. Normal speech. Results - Labs CBC & Chem 7: 08/11/18 06:11 08/12/18 08:45 Laboratory Results - last 24 hr 08/16/18 08/16/18 18:15 18:15 Urine Color Colorless Urine Clarity Clear Urine pH 6.0 Ur Specific Howard 1.002 Urine Protein Negative Urine Glucose (UA) Negative Urine Ketones Negative Urine Occult Blood Negative Urine Nitrate Negative Urine Bilirubin Negative Urine Urobilinogen Less than 2 Ur Leukocyte Esterase Negative Urine RBC Less than 1 Urine WBC Less than 1 Urine Mucus Few H Micro UA Comment Culture not ind Ur Microscopic Review Not Reportable Urine Culture Comments Culture not ind Chlam trachomat DNA PCR Not detected N.gonorrhoeae DNA (PCR) Not detected Assessment and Plan - Plan Patient is a 27-year-old female with no known medical history who is under Crowe act for psychosis and delusional behavior. Hospitalist service consulted for medical management of vaginal discharge. Bacterial vaginosis - G&C and UA negative, discharge likely 2/2 BV - Continue Flagyl - afebrile, no abdominal pain reported DVT prophylaxis-ambulation Patient is medically stable, can complete oral Flagyl here or at home. [facility] will sign off, please reconsult if needed. Discussed Condition With: Patient and RN
--- NOTE | 2018-08-17 11:17 | P.PNPSY ---
Subjective Chief Complaint: Crowe Act Remarks: Patient seen and examined with nurse. Chart reviewed. Case discussed with nursing staff. Nursing notes that patient seems to be improving with the Seroquel. Case discussed in treatment team. On my examination today, the patient seems more appropriate in our interaction. Her affect remains somewhat silly and childlike, but this too is improving. She does not verbalize as much psychotic material. She denies SI, HI or AVH. She continues to do well with her Seroquel and denies side effects from medications. No acute physical complaints. Patient continues to refuse to allow us to communicate with family or any other potential collateral information sources. She remains capacitated to refuse this. Vital Signs Temp Pulse Resp BP Pulse Ox 08/16/18 18:11 97.4 F L 88 18 118/64 98 Intake and Output 08/16/18 08/17/18 08/17/18 22:59 06:59 14:59 Intake Total 340 / 340 720 / 720 480 / 480 Balance 340 / 340 720 / 720 480 / 480 Intake: Oral 240 / 240 720 / 720 480 / 480 Oral Supplement 100 / 100 Other: # Voids 1 Date of Last Bowel Movement 08/16/18 Laboratory Results - last 24 hr 08/16/18 08/16/18 18:15 18:15 Urine Color Colorless Urine Clarity Clear Urine pH 6.0 Ur Specific Champion 1.002 Urine Protein Negative Urine Glucose (UA) Negative Urine Ketones Negative Urine Occult Blood Negative Urine Nitrate Negative Urine Bilirubin Negative Urine Urobilinogen Less than 2 Ur Leukocyte Esterase Negative Urine RBC Less than 1 Urine WBC Less than 1 Urine Mucus Few H Micro UA Comment Culture not ind Ur Microscopic Review Not Reportable Urine Culture Comments Culture not ind Chlam trachomat DNA PCR Not detected N.gonorrhoeae DNA (PCR) Not detected Labs reviewed. Review of Systems All other systems reviewed negative except as stated in HPI Mental Status Examination Appearance: Appropriate Consciousness: Alert Orientation: Person, Place (At least) Motor Activity: Normal gait, Other (No motoric abnormalities noted) Speech: Unremarkable Language: Other (More focused) Fund of Knowledge: Adequate Attention and Concentration: Easily distracted Memory: Impaired (Psychosis interferes) Mood: Other (Stabilizing) Affect: Other (Remains somewhat silly and childlike) Thought Process & Associations: Tangential (More focused) Thought Content: Bizarre thinking, Delusional Hallucination Type: Other (Internally stimulated, less so today.) Delusion Type: Bizarre, Paranoid Suicidal Ideation: No Suicidal Plan: No Suicidal Intention: No Homicidal Ideation: No Homicidal Plan: No Homicidal Intention: No Insight: Poor Judgment: Poor Assessment and Plan - Assessment (1) Schizophrenia Code(s): F20.9 - Schizophrenia, unspecified Status: Acute - Plan Plan: Patient seems to be improving with Seroquel. Titrate Seroquel to 200 mg twice daily to target residual psychiatric symptoms. Hospitalist input appreciated. Continue to monitor on the inpatient unit. Continue other medications and care as ordered. Justification for Continued Inpatient Stay: Medication changes. Impairment in reality construction. Risk for decompensation in less restrictive environment. Discharge Planning: Pending psychiatric stabilization. Request Healthcare Surrogate/Guardian Advocate?: No (1) Schizophrenia Qualifiers: Schizophrenia type: unspecified Qualified Code(s): F20.9 - Schizophrenia, unspecified
[2018-08-18] MEDS: metroNIDAZOLE 500 MG Tablet PO SCH ×2 (08:25→21:10)
--- NOTE | 2018-08-18 12:08 | P.PNPSY ---
Subjective Chief Complaint: Crowe Act Remarks: Patient seen and examined with nurse. Chart reviewed. Case discussed with nursing staff who reports that patient had been in good behavioral control until mid morning, when she had a behavioral outburst related to request for water. Per nurse, patient has been asking for water frequently but has not been drinking it. She reportedly intentionally spilled the last jug of water. When I ask why the patient spilled the water, she says it was because it was given to her by an -Scottish staff member. She remains racially and religiously preoccupied. She tells me that she is "Judeoislamic." Affect is silly. No side effects from medications. No physical complaints. Vital Signs Temp Pulse Resp BP Pulse Ox 08/17/18 17:49 97.9 F 77 18 130/60 98 Intake and Output 08/17/18 08/18/18 08/18/18 22:59 06:59 14:59 Intake Total 720 / 720 240 / 240 2400 / 2400 Balance 720 / 720 240 / 240 2400 / 2400 Intake: Oral 720 / 720 240 / 240 2400 / 2400 Other: # Voids 1 1 Date of Last Bowel Movement 08/18/18 Labs reviewed. No new labs. Review of Systems All other systems reviewed negative except as stated in HPI (Limitation: Psychosis) Mental Status Examination Appearance: Appropriate Consciousness: Alert Orientation: Person, Place (At least) Motor Activity: Other (No abnormal motor movements noted) Speech: Unremarkable Language: Adequate Fund of Knowledge: Adequate Attention and Concentration: Easily distracted Memory: Impaired (Psychosis interferes) Mood: Other (Stabilizing) Affect: Other (Again remains somewhat silly and childlike) Thought Process & Associations: Tangential (More focused) Thought Content: Bizarre thinking, Delusional Hallucination Type: Other (Remains a little internally stimulated) Delusion Type: Bizarre, Paranoid Suicidal Ideation: No Homicidal Ideation: No Insight: Poor Judgment: Poor Assessment and Plan - Assessment (1) Schizophrenia Code(s): F20.9 - Schizophrenia, unspecified Status: Acute - Plan Plan: Continue Seroquel titration to target residual psychiatric symptoms: 250 mg twice daily. Although it sounds like she is not consuming much of the water she has been requesting, I will obtain a BMP to ensure that there is not a psychogenic polydipsia picture with resultant hyponatremia. Continue to monitor on the inpatient unit. Continue other medications and care as ordered. Justification for Continued Inpatient Stay: Medication changes. Risk for decompensation in less restrictive environment. Discharge Planning: Pending psychiatric stabilization. Request Healthcare Surrogate/Guardian Advocate?: No (1) Schizophrenia Qualifiers: Schizophrenia type: unspecified Qualified Code(s): F20.9 - Schizophrenia, unspecified
[2018-08-18 16:28] LABS: Anion Gap 5 meq/L (5-15); Blood Urea Nitrogen 11 mg/dL (7-18); Calcium 8.7 mg/dL (8.5-10.1); Carbon Dioxide 30.2 meq/L (21.0-32.0); Chloride 103 meq/L (98-107); Glomerular Filtration Rate Greater Than 89 mL/min (>89); Glucose,Random 78 mg/dL (74-106); Potassium 3.9 meq/L (3.5-5.1); Sodium 138 meq/L (136-145)
[2018-08-18] MEDS: QUEtiapine 100 MG Tablet PO SCH (21:13)
[2018-08-18] MEDS: Melatonin 5 MG Tablet PO PRN (21:13)
[2018-08-19] MEDS: metroNIDAZOLE 500 MG Tablet PO SCH ×2 (08:51→22:08)
[2018-08-19] MEDS: QUEtiapine 100 MG Tablet PO SCH ×2 (08:52→22:08)
--- NOTE | 2018-08-19 14:12 | P.TTN ---
- Patient Problems Problems: 1. Discharge planning 2. Medication compliance 3. Knowledge deficit 4. Lack of coping skills - Progress Toward Goals Provider Present: Dr. Haja Natarajan (Dr. Natarajan is titrating medications, patient remains in need of further stabilization.) Provider Input: 08/17/2018; per doctor patient's Seroquel is being increased. Nurse(s) Present: RN Nurse Input: 08/17/2018; per RN patient has been no behavior and is compliant with treatment Psychiatric Counselors Present: Jude Carrasco Jr., [facility] (Counselor met with patient to discuss discharge plan. Patient will return to her mother's home upon), Natty [facility] Psychiatric Therapist Input: 08/17/2018; counselor will follow-up with patient' s mother to ensure appropirate dc Group Spec/RT/OT/RYAN Present: CHETAN Kline (And select groups.) Group Spec/RT/OT/RYAN Input: 08/17/2018; per OT/RT patient doesn't participate with groups or activities - Documentation Teaching Recipient: Patient
--- NOTE | 2018-08-19 16:48 | P.PNPSY ---
Subjective Chief Complaint: Crowe Act Remarks: Reviewed electronic medical record and discussed case with staff. Patient reports that she feels "happy" and states she "hasn't called anyone, I'm being independent". She advises that she would like to be discharged. She has been advised to fill out the appropriate form. Sodium level is WNL at 138. Mental Status Examination Appearance: Appropriate Consciousness: Alert Orientation: Person, Place (At least) Motor Activity: Other (No abnormal motor movements noted) Speech: Unremarkable Language: Adequate Fund of Knowledge: Adequate Attention and Concentration: Easily distracted Memory: Impaired (Psychosis interferes) Mood: Other (Stabilizing) Affect: Other (Again remains somewhat silly and childlike) Thought Process & Associations: Tangential (More focused) Thought Content: Bizarre thinking, Delusional Hallucination Type: Other (Remains a little internally stimulated) Delusion Type: Bizarre, Paranoid Suicidal Ideation: No Suicidal Plan: No Suicidal Intention: No Homicidal Ideation: No Homicidal Plan: No Homicidal Intention: No Insight: Poor Judgment: Poor Assessment and Plan - Assessment (1) Schizophrenia Code(s): F20.9 - Schizophrenia, unspecified Status: Acute - Plan Plan: Patient to be reevaluated by an attending psychiatrist tomorrow. She is currently requesting discharge and has filled out a ROR. Justification for Continued Inpatient Stay: Moving this patient to a lower level of care would likely result in decompensation. Request Healthcare Surrogate/Guardian Advocate?: No (1) Schizophrenia Qualifiers: Schizophrenia type: unspecified Qualified Code(s): F20.9 - Schizophrenia, unspecified
[2018-08-19] MEDS: Melatonin 5 MG Tablet PO PRN (22:15)
[2018-08-20] MEDS: metroNIDAZOLE 500 MG Tablet PO SCH ×2 (10:13→21:10)
[2018-08-20] MEDS: QUEtiapine 100 MG Tablet PO SCH (10:13)
--- NOTE | 2018-08-20 11:59 | P.PNPSY ---
Subjective Chief Complaint: Crowe Act Remarks: Patient seen and examined with nurse. Chart reviewed. Patient completed a right of release set to this afternoon around 4 PM. Case discussed with nursing staff who reports patient continues to refuse Seroquel. Case discussed in treatment team. On my examination today, the patient initially says that she has been refusing her Seroquel because she is hoping to be discharged and does not want to "withdraw" from this medication after she leaves the hospital as she has no intention of taking it. She later says that the medication is too sedating at the higher dose and requests that we return to a lower dose, which I have agreed to do as she did seem to derive partial benefit from the lower dose of Seroquel. I have encouraged her to remain through the weekend for observation and also to allow the counselor to work on discharge planning, although the patient remains quite resistant to involving anyone (particularly her family) in her care. Besides perhaps some mild sedation, although there was no objective evidence for this when she was taking the medication, no side effects. No physical complaints. Vital Signs Temp Pulse Resp BP Pulse Ox 08/20/18 05:57 97.6 F 75 17 166/67 H 96 Intake and Output 08/20/18 08/20/18 08/20/18 06:59 14:59 22:59 Intake Total 480 / 480 Balance 480 / 480 Intake: Oral 480 / 480 Labs reviewed. No new labs. Review of Systems All other systems reviewed negative except as stated in HPI Mental Status Examination Appearance: Appropriate Consciousness: Alert Orientation: Person, Place (At least) Motor Activity: Other (No motoric abnormalities noted) Speech: Unremarkable Language: Adequate Fund of Knowledge: Adequate Attention and Concentration: Easily distracted Memory: Unremarkable Mood: Appropriate Affect: Other (Remains a little bit silly) Thought Process & Associations: Circumstantial Thought Content: Bizarre thinking, Delusional Hallucination Type: None Delusion Type: Bizarre, Paranoid Suicidal Ideation: No Homicidal Ideation: No Insight: Poor Judgment: Poor Assessment and Plan - Assessment (1) Schizophrenia Code(s): F20.9 - Schizophrenia, unspecified Status: Acute - Plan Plan: Taper Seroquel back to 200 mg twice a day. Could consider attempting slower titration of this medication. However, as noted above, the patient has seemed to have significant, if incomplete, response to this medication at lower dose. I feel that, if lower dose is all the patient will accept, this is still better than nothing. Continue to monitor on inpatient unit. Continue other medications and care as ordered. Patient did rescind right of release at 11:50 this morning, prior to expiration of the right of release. Justification for Continued Inpatient Stay: Medication changes. Impairment in reality construction. High risk for decompensation in less restrictive environment. Discharge Planning: Patient likely will insist on discharge after the weekend. Unclear whether she would meet criteria for involuntary psychiatric hospitalization at that point. I have instructed the counselor to work on discharge planning. Request Healthcare Surrogate/Guardian Advocate?: No (1) Schizophrenia Qualifiers: Schizophrenia type: unspecified Qualified Code(s): F20.9 - Schizophrenia, unspecified
--- NOTE | 2018-08-20 12:47 | P.TTN ---
- Patient Problems Problems: 1. Discharge planning 2. Medication compliance 3. Knowledge deficit 4. Lack of coping skills - Progress Toward Goals Provider Present: Dr. Haja Natarajan (Dr. Natarajan is titrating medications, patient remains in need of further stabilization.) Provider Input: 08/20/18: pt has been refusing medications, pt is not currently progressing with her treatment and stabilization. 08/17/2018; per doctor patient's Seroquel is being increased. Nurse(s) Present: RN Nurse Input: 08/17/2018; per RN patient has been no behavior and is compliant with treatment Psychiatric Counselors Present: Jude Carrasco Jr., [facility] (Counselor met with patient to discuss discharge plan. Patient will return to her mother's home upon), Natty Martini, [facility] Psychiatric Therapist Input: 08/20/18: Pt discharge options are unclear, pt is non-compliant with medication and pt may be a candidate for court per her lack of progress with treatment. 08/17/2018; counselor will follow-up with patient' s mother to ensure appropirate dc Group Spec/RT/OT/RYAN Present: Luz Pandya, [employer] (And select groups.), Santos Morrell, OT, Donavan Barba, RYAN Group Spec/RT/OT/RYAN Input: 08/20/18: Pt has been attending exercise groups, she does not have the ability to tolerate other more structured activities (ie: Spirituality, Project group, etc). d/t her impulsivity and hyperverbalization and lack of redirectability. 08/17/2018; per OT/RT patient doesn't participate with groups or activities Additional Input: Pt discharge situation remains unclear. Pt has been refusing medications, she remains unstable, these factors limit her discharge options. Pt may be a candidate for court appearance if she remains uncooperative with recommended care. - Documentation Teaching Recipient: Patient
[2018-08-21] MEDS: metroNIDAZOLE 500 MG Tablet PO SCH ×2 (09:04→20:25)
--- NOTE | 2018-08-21 17:52 | P.PNPSY ---
Subjective Chief Complaint: Crowe Act Remarks: Patient was seen and case discussed with nursing. Patient remains psychotic but less so. Later she tells me she has 2 sugar that he is and one is mailing her her keys from a new apartment he brought her in [place]. Remains elevated and internally stimulated Mental Status Examination Appearance: Appropriate Consciousness: Alert Orientation: Person, Place (At least) Motor Activity: Other (No motoric abnormalities noted) Speech: Unremarkable Language: Adequate Fund of Knowledge: Adequate Attention and Concentration: Easily distracted Memory: Unremarkable Mood: Appropriate Affect: Other (Remains a little bit silly) Thought Process & Associations: Circumstantial Thought Content: Bizarre thinking, Delusional Hallucination Type: None Delusion Type: Bizarre, Paranoid Suicidal Ideation: No Suicidal Plan: No Suicidal Intention: No Homicidal Ideation: No Homicidal Plan: No Homicidal Intention: No Insight: Poor Judgment: Poor Assessment and Plan - Assessment (1) Schizophrenia Code(s): F20.9 - Schizophrenia, unspecified Status: Acute - Plan Plan: Continue current treatment plan Justification for Continued Inpatient Stay: Patient would decompensate in a less restrictive setting Request Healthcare Surrogate/Guardian Advocate?: No (1) Schizophrenia Qualifiers: Schizophrenia type: unspecified Qualified Code(s): F20.9 - Schizophrenia, unspecified
[2018-08-22] MEDS: metroNIDAZOLE 500 MG Tablet PO SCH ×2 (09:20→21:46)
--- NOTE | 2018-08-22 13:45 | P.PNPSY ---
Subjective Chief Complaint: Crowe Act Remarks: Patient was seen and case discussed with nursing. Patient is slightly less psychotic today. However she is detailing her plans of living with a 72-year- old [place] male. She gives me a confirmation number for flight from [place], [id number]. We looked it up and this is a confirmed flight. Patient no longer believes she is part of the [employer] or [employer]. She does remain elevated and disorganized Mental Status Examination Appearance: Appropriate Consciousness: Alert Orientation: Person, Place (At least) Motor Activity: Other (No motoric abnormalities noted) Speech: Unremarkable Language: Adequate Fund of Knowledge: Adequate Attention and Concentration: Easily distracted Memory: Unremarkable Mood: Appropriate Affect: Other (Remains a little bit silly) Thought Process & Associations: Circumstantial Thought Content: Bizarre thinking, Delusional Hallucination Type: None Delusion Type: Bizarre, Paranoid Suicidal Ideation: No Suicidal Plan: No Suicidal Intention: No Homicidal Ideation: No Homicidal Plan: No Homicidal Intention: No Insight: Poor Judgment: Poor Assessment and Plan - Assessment (1) Schizophrenia Code(s): F20.9 - Schizophrenia, unspecified Status: Acute - Plan Plan: Continue current treatment plan, look into situation with collaterals concerning her discharge plans and flight Justification for Continued Inpatient Stay: Patient would decompensate in a less restrictive setting Request Healthcare Surrogate/Guardian Advocate?: No (1) Schizophrenia Qualifiers: Schizophrenia type: unspecified Qualified Code(s): F20.9 - Schizophrenia, unspecified
[2018-08-23] MEDS: metroNIDAZOLE 500 MG Tablet PO SCH ×2 (09:44→20:28)
--- NOTE | 2018-08-23 10:25 | P.DSPSY ---
Psychiatry Discharge Summary Inpatient Psychiatric care?: Yes Advance Directives: No Reason for Unknown:: Other Mental Health Advance Directive: No Health Care Proxy: No - Admission Admission Date: August 11, 2018 13:38 - Admission Diagnosis (1) Schizophrenia Code(s): F20.9 - Schizophrenia, unspecified Brief History: Ms. Briseno is a 27 year-old female with a history of schizophrenia who presents under a Cro[place] Act by law enforcement alleging in part that patient is "DELUSIONAL AND MAKING ERRATIC STATEMENTS. WHEN OFFICERS MADE CONTACT WITH MS. BRISENO SHE WAS STANDING ON TOP OF A LAWN CHAIR ON THE SECOND FLOOR LEDGE CAUSING IMMANENT DANGER TO HERSELF." Patient was just discharged from the inpatient psychiatric unit into mother's care. EMR reviewed. Patient seen and examined with nurse. Chart reviewed. Case discussed with nursing staff. Per nursing, patient has been picking on a female patient with intellectual disabilities on the unit. On my examination today, the patient denies that her standing on the chair represented any sort of suicidal attempt. She says that she was simply trying to get a better view of the police. She denies any suicidal or homicidal ideation, intent or plan now. She denies any audiovisual hallucinations although she does appear internally preoccupied. She describes her mood as "happy" and her affect is somewhat silly. Sleep and appetite are reportedly fair. She remains fixated on [place] and also on a man named Wu Page, who she says is jailed for his ownership of the [employer], a [employer]. Her narrative is laced with references to drugs of abuse, although she denies any recent substance use and her UTox is negative. She also is perseverative on presybeterian issues as before. She declares that she is a david-Nazi and that she does not like liberals. At the same time, she reports she is fasting for Yom Kippur. She has, in fact, been eating and is noted to ask for snacks at the conclusion of our interview. Remainder of the psychiatric ROS is negative. No acute physical complaints. Patient is willing to remain on the inpatient psychiatric unit for further observation and stabilization. Tobacco Use In Past 30 Days: No How Often Do You Have a Drink Containing Alcohol: Never Hospital Course: Patient was admitted to a locked, inpatient psychiatric unit. A general medical consultation was obtained. A podiatry consultation was obtained for foot fracture. Appropriate precautions were in place throughout the patient's hospital stay. There was no evidence of any suicidality or homicidality on the inpatient unit. There was no evidence of self-care deficit. Psychotropic medications were adjusted. Patient had improvement in presenting psychiatric symptoms during the course of her hospital stay. She declined additional long- acting injectable antipsychotic. Patient declined to allow staff to involve anyone (particularly family) in her care. Today, 08/23: Patient seen and examined with nurse. Chart reviewed. Case discussed with nursing staff. Nursing indicates that the patient has worked extensively to make preparations to return to [place] tomorrow. Patient has reportedly made flight arrangements and has made arrangements to have the cruz to her condominium mailed to her on the unit. She did allow a visit from her mother over the weekend per nurse report, and nurse indicates that the patient' s mother provided the patient with $200 in [place] for the trip. Patient noted to be pleasant with decreased racial and presybeterian preoccupation. She is compliant with medications. On my examination today, the patient remains insistent on discharge tomorrow. She denies any suicidal or homicidal ideation , intent or plan. I can elicit no depressive or hypomanic/manic symptoms. She denies any audiovisual hallucinations. No destiny delusional material. She does continue to exhibit a racial and presybeterian preoccupation but does not share this material unless specifically asked about it. Overall, her presenting psychosis seems much improved versus admission. She denies side effects from medications. She once again refuses any sort of long-acting injectable antipsychotic. She also refuses any further titration of her Seroquel. She has no physical complaints. She is able to discuss with me in great detail her discharge plan, including plans for follow-up with mental health clinic in [place]. Her plans seem reasonable, achievable and reality based. She continues to refuse to allow us to contact family to assist with the discharge plan. Weighing the relevant factors and based on the available evidence, I managing partner [employer] [place] that the patient does not meet criteria for involuntary psychiatric hospitalization. There is no evidence of imminent risk of harm to self or others at this point , nor is there evidence of self-care deficit to support involuntary psychiatric hospitalization. She is insisting on discharge tomorrow with plan to go to [place], and I have no basis to retain her over her objection. I do believe that the patient would benefit from additional observation on the inpatient unit, but she is declining this. Having no basis to retain the patient over her objection, I will discharge her AGAINST MEDICAL ADVICE. I have explained to the patient that she is leaving AGAINST MEDICAL ADVICE. Patient is to follow up psychiatrically through mental health clinic in [place]. Patient is also to follow up with primary care and with podiatry. I have counseled the patient to abstain from substances of abuse. I have reminded the patient of warning signs for need to return to the psychiatric emergency room as part of a general safety plan. I will be out of the office tomorrow, Thursday, and I have asked Dr. Hood to round on the patient prior to her release from the inpatient unit. I have signed the case out to Dr. Hood today. - Discharge Discharge Date: 08/24/18 - Discharge Diagnosis (1) Schizophrenia Diagnosis: Principal (Improved versus admission) Code(s): F20.9 - Schizophrenia, unspecified Status: Chronic Discharge Disposition: As per counselor's notes - Discharge Instructions Discharge Diet: Regular Diet Activities You Can Perform: Weight Bearing As Tolerat - Discharge Time > 30 minutes Mental Status Examination Appearance: Appropriate Consciousness: Alert Orientation: x4 Motor Activity: Normal gait (Ambulates with boot), Other (No hand tremor, no dystonia, no dyskinesia, no other motor abnormalities noted.) Speech: Unremarkable Language: Adequate Fund of Knowledge: Adequate Attention and Concentration: Adequate Memory: Unremarkable Mood: Appropriate Affect: Appropriate Thought Process & Associations: Intact Thought Content: Bizarre thinking, Preoccupations (As noted above, less prominent at this point) Hallucination Type: None Delusion Type: None Suicidal Ideation: No Suicidal Plan: No Suicidal Intention: No Homicidal Ideation: No Homicidal Plan: No Homicidal Intention: No Mental Status Exam Remarks: Insight and judgment are fair to poor, likely patient's baseline condition in the setting of chronic psychotic illness. Discharge/Advance Care Plan - Results Vital Signs: Last Vital Signs Temp 97.9 F 08/23/18 06:08 Pulse 73 08/23/18 06:08 Resp 16 08/23/18 06:08 BP 103/54 L 08/23/18 06:08 Pulse Ox 97 08/23/18 06:08 Lab Results: Laboratory Results Hemoglobin A1c 4.6 % (4.3-6.0) 08/12/18 08:45 Triglycerides 70 mg/dL (42-150) 08/12/18 08:45 Cholesterol 133 mg/dL (120-200) 08/12/18 08:45 LDL Cholesterol, Calc 57 mg/dL (0-99) 08/12/18 08:45 HDL Cholesterol 62.0 mg/dL (40.0-60.0) H 08/12/18 08:45 TSH 3.050 uIU/mL (0.358-3.740) 08/11/18 06:11 Urine Culture Comments Culture not ind 08/16/18 18:15 Summary of Procedures: None done. Imaging: ITS Impressions Foot X-Ray 08/13/18 00:00 CONCLUSION: Nondisplaced fracture through the base of the fifth metatarsal. Pending Results: None - Medications Number of antipsychotic medications at discharge: 1 - Discharge Care Plan Goals to Promote Your Health: * To prevent worsening of your condition and complications * To maintain your health at the optimal level Directions to Meet Your Goals: Take your medications as prescribed Follow your dietary instruction Follow activity as directed Keep your appointments as scheduled Take your immunizations and boosters as scheduled If your symptoms worsen call your PCP, if no PCP go to Urgent Care Center or Emergency Room For 11/05 questions related to your inpatient stay or results of tests pending at discharge, please contact Dr. George Natarajan MD at Smoking is Dangerous to Your Health. Avoid second hand smoking (1) Schizophrenia Qualifiers: Schizophrenia type: unspecified Qualified Code(s): F20.9 - Schizophrenia, unspecified (1) Schizophrenia Qualifiers: Schizophrenia type: unspecified Qualified Code(s): F20.9 - Schizophrenia, unspecified
--- NOTE | 2018-08-24 16:26 | P.PNPSY ---
Subjective Chief Complaint: Crowe Act Remarks: Patient seen for follow up; chart reviewed. Discussion with nursing staff reported noted to be talking to her mother earlier this morning over the phone, no behavioral disturbances overnight. Patient was found in blade on unit noted become cooperative. Patient state that she is feeling "normal now" stating that prior to her admission she had been having rapid thoughts and thinking of conspiracies and other random topics but states that with her recent adjustment of medication has been have feeling improved organization of her thinking. Patient states that she had brought an apartment and now just worried about being able to pay for it. She states she plans on going to [place] and reunite with her boyfriend and engage into a mental health clinic and primary care physician follow up. Patient denies any suicidal or homicidal ideation, denies any perceptual disturbances at time of interview. Review of Systems All other systems reviewed negative except as stated in HPI Mental Status Examination Appearance: Appropriate Consciousness: Alert Orientation: x4 Motor Activity: Normal gait (Ambulates with boot), Other (No hand tremor, no dystonia, no dyskinesia, no other motor abnormalities noted.) Speech: Unremarkable Language: Adequate Fund of Knowledge: Adequate Attention and Concentration: Adequate Memory: Unremarkable Mood: Appropriate Affect: Appropriate Thought Process & Associations: Intact Thought Content: Bizarre thinking, Preoccupations (As noted above, less prominent at this point) Hallucination Type: None Delusion Type: None Suicidal Ideation: No Suicidal Plan: No Suicidal Intention: No Homicidal Ideation: No Homicidal Plan: No Homicidal Intention: No Insight: Poor Judgment: Poor Assessment and Plan - Assessment (1) Schizophrenia Code(s): F20.9 - Schizophrenia, unspecified Status: Chronic - Plan Plan: Patient currently not noted to be a danger to self or others, is future oriented and has made adequate plans for discharge which patient's mother is aware of as patient states having spoken to her mother today. Patient agrees to continue treatment and follow up with medical and mental health services upon arrival back to [place]. Patient will be discharged as planned by Dr. Natarajan and counselor. Justification for Continued Inpatient Stay: Patient will be discharged today. Request Healthcare Surrogate/Guardian Advocate?: No (1) Schizophrenia Qualifiers: Schizophrenia type: unspecified Qualified Code(s): F20.9 - Schizophrenia, unspecified
== END 2018-08-24 10:15 | disposition left against medical advice (07) ==
LOC: NEPC 05:39 → NEDA 13:38 → H270 14:20 → H4EA 08-13 13:56 → HCPC 08-16 09:02 → H4EA 08-16 09:06
PROVIDERS: ADMIT Student in an Organized Health Care Education/Training Program; ATTEND Student in an Organized Health Care Education/Training Program